=== PATIENT | male | born 1950 | race Caucasian/White ===

== ENCOUNTER → 2020-04-08 14:15 | Outpatient (BNVA) | payer OTHER, SELFPAY | PROVIDERS: Family Provider Family Medicine; PCP Family Medicine; Visit Provider Internal Medicine Critical Care Medicine | DX: Z11.59 Encounter for screening for other viral diseases (principal) | CPT/HCPCS: 87635 ==

== ENCOUNTER 2020-04-13 10:50 | Outpatient (CLI) | payer OTHER, SELFPAY ==
--- NOTE | 2020-04-13 11:37 | PFTS_ITS ---
Date of Study:04/13/20 Date of Dictation: MECHANICS: Forced vital capacity (FVC) is reduced. Forced expiratory volume in one second (FEV1) is reduced. FEV1/FVC is normal. FLOW VOLUME LOOP: Reduced flow at all lung volumes with narrow flow volume loop. LUNG VOLUMES: Total lung capacity (TLC) is . Residual volume (RV) is . DIFFUSING CAPACITY FOR CARBON MONOXIDE: Moderately reduced. INTERPRETATION: Spirometry is consistent with mild restriction. There is no significant postbronchodilator response. The patient has reduced total lung capacity with relatively preserved residual volume. This is likely secondary to a combined obstructive and restrictive process. Gas exchange (DLCO) is moderately reduced. MTDD
[2020-04-13 11:39] VITALS: BP 146/74
== END 2020-04-13 10:51 | disposition home or self-care (01) ==
LOC: RT 10:51
PROVIDERS: Family Provider Family Medicine; PCP Family Medicine; Visit Provider Internal Medicine Critical Care Medicine
DX: J44.9 Chronic obstructive pulmonary disease, unspecified (principal)
CPT/HCPCS: 94060; 94618; 94726; 94729; J7611

== ENCOUNTER 2020-04-13 11:00 | Outpatient (CLI) | payer OTHER, SELFPAY | END 2020-04-13 11:01 | disposition home or self-care (01) | LOC: SLEEP 04-14 15:18 | PROVIDERS: Family Provider Family Medicine; PCP Family Medicine; Visit Provider Internal Medicine Critical Care Medicine | DX: J44.9 Chronic obstructive pulmonary disease, unspecified (principal) | CPT/HCPCS: 94762 ==

== ENCOUNTER 2020-05-07 07:43 | Outpatient (CLI) | payer OTHER, MEDICARE, SELFPAY ==
--- NOTE | 2020-05-07 09:53 | CT_ITS ---
WS: [id number] CTA scan of the chest with IV contrast. Additional two-dimensional coronal and sagittal reconstructio n and MIP images was performed. 05/07/2020 Clinical Data: sOB, HYPOXEMIA ON AMBULATION ELEVATED D-DIMER Comparison: CTA chest, 12/22/2011. DLP: All CT scans at [facility] use at least one of these dose optimization techniques: automat ed exposure control; mA and/or kV adjustment per patient size (includes targeted exams where dose is matched to clinical indication); or iterative reconstruction. Findings: The central pulmonary arteries and peripheral pulmonary arteries fill normally with no evidence of in traluminal filling defects. No pulmonary embolic disease is noted. No nodules, masses or effusions are seen. The heart size is normal with no pericardial effusion. Ther e is coronary artery calcification. No pneumonia or pneumothorax is seen. The pulmonary arterial syst em and thoracic aorta demonstrate no abnormalities or dilatations. There is no axillary or significan t mediastinal adenopathy. The trachea bifurcates into the bronchi. There is a small hiatal hernia. The upper abdomen shows no abnormalities. The visualized liver, spleen, pancreas, gallbladder, adrena l glands and superior poles of the kidneys are not remarkable. The bones of the thoracic and upper lumbar spine show moderate osteoarthritis.. CT/CT angio chest PE protcl [id number] Impression: 1. Negative for pulmonary embolic disease. 2. Negative for acute cardiopulmonary disease.
[2020-05-07 10:13] LABS: Blood Urea Nitrogen 8 mg/dL (8-23); Glomerular Filtration Rate 74.5 mL/min (90-130)
[2020-05-07] MEDS: iohexol 350 mg/mL 100 mL Btl IV (10:24)
== END 2020-05-07 07:44 | disposition home or self-care (01) ==
LOC: RADWPI 07:49
PROVIDERS: PCP Family Medicine; Visit Provider Family Medicine
DX: R06.02 Shortness of breath (principal); R09.02 Hypoxemia; R79.89 Other specified abnormal findings of blood chemistry
CPT/HCPCS: 71275; 82565; 84520; Q9967

== ENCOUNTER 2020-08-02 08:51 | Outpatient (CLI) | payer OTHER, MEDICARE, SELFPAY ==
[2020-08-02 09:13] VITALS: BMI 40.6
--- NOTE | 2020-08-02 09:18 | ECG_ITS ---
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 Interpretive Statements NAME OF STUDY: LEXISCAN SESTAMIBI STRESS TEST INDICATION: [Exertional Shortness of Breath] Procedure: At the baseline, the blood pressure was 127/72mmHg, with a heart rate of 62 bpm. The electrocardiogram showed normal sinus rhythm, normal with normal ST and T waves. The Lexiscan was infused over a duration of 20 seconds. A total of 0.4 mg of Lexiscan was infused. The stress phase was continued for a total of 5 minutes. Heart rate at the end of stress phase was 66 bpm with a blood pressure 131/66mmHg. The EKG at the peak infusion revealed sinus rhythm with no significant ST-T wave changes. Sestamibi was injected 20 seconds after Lexiscan infusion. Blood pressure at the end of the recovery phase was 126/72mmHg with a heart rate of 64 bpm. Conclusion: 1. Normal EKG response to Lexiscan infusion. 2. No Lexiscan induced chest pain or cardiac arrhythmia. 3. Normal blood pressure and heart rate response. 4. Sestamibi/sestamibi perfusion scan pending; see separate report. Electronically Signed On 08-15-2020 17:43:01 CDT by Sunny Orozco M.D. [id number]
--- NOTE | 2020-08-02 09:20 | NMCV_ITS ---
NM jose miguel perf SPECT r/s* [id number] Karel Horan Age: 69 Gender: M : 1950 Exam Date: 08/02/2020 10:46 Ordering Phys: Delphine Garcia MD Technologist: BIRD Paulino Exam Location: [facility] Indications: SOB STRESS TEST Please see separate stress test report in [facility] for full findings IMAGE PROTOCOL Rest/Stress 1 Lexiscan Day Radiopharmaceutical Dose (mCi) Administration Site Administered by Rest: Tc-99m 10.8 IV BIRD Paulino Sestamibi Stress:Tc-99m 32.3 IV BIRD Whittaker Sestamibi Rest: 02-Aug-2020 60 Discovery 630 Stress: 02-Aug-2020 30 Discovery 630 0.4mg Lexiscan. Images obtained in supine and prone position. SPECT RESULTS Technical Quality: Good Raw Data Analysis: Soft tissue attenuation Image Corrections: No attenuation or motion correction applied Summed Stress Score: 2 Summed Rest Score: 4 Summed Difference Score: 1 PERFUSION FINDINGS There is medium sized perfusion defect in the inferior wall which is mostly fixed. Likely demonstrates artifact vs prior infarct with ariadna-infarct ischemia FUNCTIONAL RESULTS (calculated via Gated SPECT) Stress Image LV EF (%): 54 Stress EDV (mL):143 TID: 1.13 Stress ESV (mL):66 FUNCTIONAL FINDINGS: There is normal left ventricular systolic function. IMPRESSIONS 1. There is a medium sized, mostly fixed perfusion defect in the inferior wall. This likely represents attenuation artifact vs prior infarct with ariadna-infarct ischemia. No significant area of ischemia noted 2. LV systolic function is normal Sunny Orozco MD (Electronically Signed) Final Date: 02 August 2020 17:01 S
--- NOTE | 2020-08-02 11:18 | SUR.PREOP ---
Patient reports no pain or discomfort prior to the start of the procedure.
[2020-08-02] MEDS: regadenoson 0.4 Mg/5 ml Syringe IVP (11:20)
[2020-08-02 11:54] VITALS: BP 126/63; PULSE 63
== END 2020-08-02 08:52 | disposition home or self-care (01) ==
PROVIDERS: PCP Family Medicine; Visit Provider Internal Medicine Critical Care Medicine
DX: R06.02 Shortness of breath (principal); I50.30 Unspecified diastolic (congestive) heart failure
CPT/HCPCS: 78452; 93017; A9500; J2785

== ENCOUNTER 2021-03-17 06:24 | Emergency (ER) | payer MEDICARE, OTHER, SELFPAY ==
[2021-03-17 06:35] VITALS: BP 141/79; PULSE 60; RESP 18; TEMP 36.7; O2SAT 90; BMI 39.3
--- NOTE | 2021-03-17 06:38 | XR_ITS ---
WS: [id number] RIGHT FOOT: 3 VIEW(S) TECHNIQUE: AP, oblique and lateral. HISTORY: fall pain; r 1st metatarsal/toe pain COMPARISON: None available. Severe diffuse osteopenia. No fractures are identified. Marked pes planus. Normal tarsal/metatarsal alignment. Small calcaneal spur. Mild soft tissue edema surrounding the metatarsals. XR/XR foot RT min 3V* [id number] IMPRESSION: Soft tissue edema surrounding the metatarsals but no acute fracture identified.
--- NOTE | 2021-03-17 06:39 | W.ED.EXTPRO ---
HPI - Extremity Problem General: Chief complaint: Extremity Injury, Lower Stated complaint: r foot injury: fall Time Seen by Provider: 03/17/21 06:34 Source: patient Mode of arrival: ambulatory Limitations: other (Patient uses a cane normally) History of Present Illness: HPI Narrative: Patient states he tripped last night and hurt his right big toe and proximal right foot. He states he has chronic foot and ankle problems. Complaint: extremity pain and joint pain Onset (ago): day(s) (Last night) Pain Consistency: constant Location: right and toe Severity scale (1-10): 6 Quality: aching and sharp Radiation: none Relieving factors: nothing Exacerbating factors: walking Associated symptoms: Reports arthralgias; Deny chest pain, fever(s), myalgias, rash or short of breath Review of Systems Const: Denies: fever(s) Eyes: Denies: change in vision ENMT: Denies: throat pain Card: Denies: chest pain Resp: Denies: dyspnea or wheezing GI: Denies: abdominal pain, nausea or vomiting : Denies: flank pain Musc: Denies: neck pain or back pain Skin/Breast: Denies: rash Neuro: Denies: headache(s) or numbness in extremities Kan/Lymph: Denies: enlarged lymph nodes PFSH ED PFSH: Medical History Cardiomegaly Chronic back pain COPD (chronic obstructive pulmonary disease) Crohn's disease GERD (gastroesophageal reflux disease) Histoplasmosis HTN (hypertension) Hyperlipidemia Hypoxia Lung nodule Efe syndrome Nicotine dependence Surgical History H/O hernia repair H/O shoulder surgery History of ear surgery Social History Smoking and tobacco status: current every day smoker cigarettes Packs smoked per day: 1 Years cigarettes smoked: 45 Quit status (tobacco): considering quitting Second hand smoke exposure: Yes Smoking risk assessment/counseling performed?: Yes Alcohol intake: never Lives independently: Yes Household members: spouse Marital status: service: Yes Current occupational status: retired Pets and animals: Yes History of recent travel: No Current gender identity: Male Physical Exam Const: COMMON NORMALS: no acute distress, patient oriented x3, healthy appearing and alert EXAM LIMITATIONS: no altered mental status GENERAL APPEARANCE: cooperative and comfortable NUTRITIONAL APPEARANCE: obese HENMT: COMMON NORMALS: normocephalic and atraumatic HEAD & SCALP: normocephalic and atraumatic Neck/C-Spine: COMMON NORMALS: supple Chest: COMMONS NORMALS: normal inspection of the chest Resp: COMMON NORMALS: normal respiratory effort Cardio: PERIPHERAL PULSES: posterior tibial pulses present and dorsalis pedis present Extremity: COMMON NORMALS: full ROM and capillary refill normal NARRATIVE EXTREMITY EXAM: Mild peripheral edema bilaterally. Patient states this is chronic. Patient has moderate pain to the first MTP joint of the right foot no lacerations abrasions or puncture wounds. No cellulitis. Right toe is tender but no obvious deformity. RIGHT LOWER EXTREMITY: Yes foot & digits (No tendon or neurovascular deficits.) Right foot and digits: Yes ROM, Yes neurovascular exam and Yes tendon exam Neuro: COMMON NORMALS: patient oriented x3 SENSORIUM/ORIENTATION: Yes alert SPEECH: speech normal SENSORY EXAM: Yes extremities MOTOR EXAM: 5/5 motor strength present throughout Psych: COMMON NORMALS: mental status grossly normal, Normal thought process present, cooperative, normal affect and speech normal SPEECH: Yes normal speech THOUGHT PROCESS: Normal thought process present Skin: COMMON NORMALS: no rashes or lesions noted, no wounds and no jaundice GENERAL SKIN EXAM: no rashes or lesions noted Course Vital Signs: Vital signs: Vital Signs Temperature 98.1 F 03/17/21 06:35 Pulse Rate 60 03/17/21 06:35 Respiratory Rate 18 03/17/21 06:35 Blood Pressure 141/79 03/17/21 06:35 Pulse Oximetry 90 03/17/21 06:35 MDM - Extremity (Nontraumatic) MDM Narrative: Medical decision making narrative: See nursing assessment. I accidentally ordered left foot x-ray. This should be canceled. Imaging Data^: Xray Ortho: My impression: Nondisplaced distal oblique fracture of the proximal phalange of the right 1st toe is nondisplaced but is intra-articular. Discharge Plan Discharge Condition: Stable Prescriptions: No Action lidocaine 5 % adhesive patch,medicated 1 patch TOPICAL DAILY RF: 0 mesalamine 500 mg capsule, extended release 3,600 mg PO ONCE RF: 0 metoprolol succinate 50 mg capsule,sprinkle,ER 24hr 25 mg PO BID RF: 0 morphine 60 mg capsule, ER multiphase 24 hr 60 mg PO Q8H PRNRF: 0 ropinirole 2 mg tablet 2 mg PO DAILY RF: 0 gabapentin 600 mg tablet 1,200 mg PO TID RF: 0 lisinopril 40 mg tablet 20 mg PO DAILY RF: 0 omeprazole 40 mg capsule,delayed release(DR/EC) 40 mg PO DAILY RF: 0 trazodone 100 mg tablet 100 mg PO DAILY RF: 0 Stiolto Respimat 2.5-2.5 mcg/actuation mist 2 puff INHALATION Q24H 30 Days Qty: 4 RF: 3 levalbuterol tartrate [Xopenex HFA] 45 mcg/actuation HFA aerosol inhaler 2 inh inhalation Q6H PRN (Reason: shortness of breath or wheezing) RF: 0 furosemide [Lasix] 20 mg tablet 20 mg PO DAILY 30 Days Qty: 30 RF: 3 nicotine 21 mg/24 hr patch 24 hour 1 patch transdermal DAILY RF: 0 cetirizine [All Day Allergy (cetirizine)] 10 mg tablet 10 mg PO DAILY PRNRF: 0 diphenhydramine HCl [Allergy (diphenhydramine)] 25 mg capsule 25 mg PO DAILY PRNRF: 0 Discharge Orders: Discharge ED (Routine); Ordered 03/17/21 Ordered By: Henry Peralta Referrals: Caesar Leonard DO [Physician] - (Follow up for foot injury) Laureano Abraham MD [Primary Care Provider] - Discharge Diet: Advance as tolerated Discharge Activity: Increase activity as tolerated Patient Instructions: Fractures - Phalanx (Toe) Activity Restrictions/Additional Instructions: Use walking boot as needed. You appear to have a nondisplaced fracture of the proximal phalanx of the right first toe. Follow-up with orthopedist this week or next week for evaluation. Continue home pain medications as needed Coding Level of Care Code ED Regional Engagement Consultant for Chg Fwd Exam Comprehensive
--- NOTE | 2021-03-17 07:30 | PC.PT ---
received verbal order from ER for walking boot for this patient ,and they stated they will send order.this was provided to them.
== END 2021-03-17 08:05 | disposition home or self-care (01) ==
PROVIDERS: Emergency Provider Family Medicine; PCP Family Medicine
DX: S92.414A Nondisplaced fracture of proximal phalanx of right great toe, initial encounter for closed fracture (principal); J44.9 Chronic obstructive pulmonary disease, unspecified; I10 Essential (primary) hypertension; E78.5 Hyperlipidemia, unspecified; F17.210 Nicotine dependence, cigarettes, uncomplicated; W18.40XA Slipping, tripping and stumbling without falling, unspecified, initial encounter
CPT/HCPCS: 73630; 99282; L4361

== ENCOUNTER 2022-04-04 07:22 | Outpatient (CLI) | payer OTHER, SELFPAY ==
--- NOTE | 2022-04-04 | USCV_ITS ---
Karel Horan Age: 71 Gender: M : 1950 Exam Date: 04/04/2022 07:56 Ordering Phys: Sade Vieira MD Technologist: CT Exam Location: [facility] [place] Indication: screening HISTORY: Diameter (cm) AP x Transverse x Length Velocity (cm/s) Waveform Prox Aorta: 2.32 x 2.50 x 66.10 Triphasic Mid Aorta: 2.22 x 2.45 x 74.50 Triphasic Distal Aorta: 2.41 x 2.56 x 87.60 Triphasic Right Iliac Prox: 1.11 x 1.49 x 87.60 Triphasic Left Iliac Prox: 1.11 x 1.49 x 110.00 Triphasic Stent Prox Landing x x Aneurysmal Sac Max x x Lt Lat Sac Dim Rt Lat Sac Dim Stent Dist Landing x x Right Iliac Stent x x Left Iliac Stent x x Right Renal Art Left Renal Art FINDINGS: no evidence of aaa CONCLUSIONS No evidence of abdominal aortic or bilateral iliac aneurysm. Burak He MD (Electronically Signed) Final Date: 04 April 2022 16:32 S
== END 2022-04-04 07:23 | disposition home or self-care (01) ==
LOC: RAD 07:22
PROVIDERS: PCP Family Medicine; Visit Provider Family Medicine
DX: Z13.89 Encounter for screening for other disorder (principal)
CPT/HCPCS: 76706

== ENCOUNTER 2022-05-01 05:48 | Emergency (ER) | payer MEDICARE, OTHER, SELFPAY ==
[2022-05-01] VITALS (9 sets, daily range): BP systolic 122–181; BP diastolic 73–107; PULSE 82–86; RESP 16–20; TEMP 36.7; O2SAT 85–92; BMI 36.9
--- NOTE | 2022-05-01 05:58 | CTR_ITS ---
PROCEDURE INFORMATION: Exam: CT Abdomen And Pelvis Without Contrast Exam date and time: 05/01/2022 6:15 AM Age: 71 years old Clinical indication: Abdominal pain; Flank; Right; Prior surgery; Surgery date: 6+ months; Surgery type: Umb hernia repair x 2 w mesh; Additional info: Flank pain TECHNIQUE: Imaging protocol: Computed tomography of the abdomen and pelvis without contrast. Radiation optimization: All CT scans at this facility use at least one of these dose optimization techniques: automated exposure control; mA and/or kV adjustment per patient size (includes targeted exams where dose is matched to clinical indication); or iterative reconstruction. COMPARISON: CT abdomen w con* [id number] 01/29/2018 1:54 PM RADIATION DOSE METRICS: Total DLP (mGy-cm): 1325.95 FINDINGS: Liver: Tiny benign calcified granulomas are present in the liver. Gallbladder and bile ducts: Normal. No calcified stones. No ductal dilation. Pancreas: Normal. No ductal dilation. Spleen: Tiny benign calcified granulomas are present in the spleen. Adrenal glands: Normal. No mass. Kidneys and ureters: There is a stable 2.2 cm hyperdense cyst in the upper pole of the right kidney which is probably benign proteinaceous cyst. There is no hydronephrosis or renal calculus. Stomach and bowel: Mild diverticulosis. No evidence of diverticulitis. No bowel obstruction or dilatation. Appendix: No evidence of appendicitis. Intraperitoneal space: Unremarkable. No free air. No significant fluid collection. Vasculature: The abdominal aorta and iliac arteries are calcified. No abdominal aortic aneurysm. Lymph nodes: There are small benign calcified retroperitoneal lymph nodes. Urinary bladder: Unremarkable as visualized. Reproductive: Unremarkable as visualized. Bones/joints: Chronic degenerative changes are present in the spine with disc space narrowing sclerosis and osteophytes. No acute bony abnormality. Soft tissues: Bilateral small fat containing inguinal hernias. Status post umbilical hernia repair. CT/CT kidney stone [id number] IMPRESSION: No acute abnormality.
[2022-05-01 06:05] LABS: Basophils % 0.1 %; Eosinophils % 0.3 %; Hematocrit 45.5 % (42.0-52.0); Hemoglobin 15.2 g/dL (11.7-16.6); Lymphocytes # 1.2 10^3/uL (0.8-4.8); Lymphocytes % 12.7 %; Mean Corpuscular HGB Conc 33.4 g/dL (30.0-36.0); Mean Corpuscular Volume 89.7 fl (80-94); Mean Platelet Volume 9.3 fL (7.4-10.4); Monocytes # 0.7 10^3/uL (0.2-0.9); Monocytes % 7.3 %; Neutrophils # 7.21 10^3/uL (1.8-7.7); Neutrophils % 79.3 %; Nucleated Red Blood Cells % 0 %; Platelet Count 181 10^3/cmm (130-400); Red Blood Count 5.07 10^6/uL (4.1-5.3); Red Cell Distribution Width 13.9 % (12.1-15.1); White Blood Count 9.1 10^3/uL (4.0-10.0)
--- NOTE | 2022-05-01 06:05 | ECG_ITS ---
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 Measurements Intervals [place] Rate: 76 P: 58 [place]: 246 QRS: -65 QRSD: 118 T: 31 QT: 395 QTc: 445 Interpretive Statements SINUS RHYTHM WITH FIRST DEGREE AV BLOCK WITH FREQUENT SUPRAVENTRICULAR PREMATURE COMPLEXES LEFT ANTERIOR FASCICULAR BLOCK [QRS AXIS <= -45, QR IN I, RS IN II] POSSIBLE ANTERIOR MYOCARDIAL INFARCTION , PROBABLY OLD [30 ms Q WAVE IN V3/V4, OR R < 0.2 mV IN V4] Compared to ECG 09/14/2015 16:43:52 No significant changes Electronically Signed On 05-01-2022 14:22:14 [employer] by Pina Hernandez M.D. [id number]
[2022-05-01] MEDS: morphine 4 mg/mL SDV 1 mL IVP (06:10)
[2022-05-01] MEDS: ondansetron 2 mg/ML SDV 2 mL 4 MG IVP (06:10)
--- NOTE | 2022-05-01 06:23 | W.ED.ABDPA2 ---
HPI - Abdominal Pain General: Chief Complaint: Abdominal Pain Stated Complaint: Possible Kidney Stone Time Seen by Provider: 05/01/22 05:52 Source: patient Mode of arrival: ambulatory History of Present Illness: 71-year-old male presents emergency room with complaining of right flank pain that began overnight. He has had kidney stones in the past feels like he has a kidney stone on the right side. Has not really associate anything that makes it better or worse she is not noticing worsening the pain with urination he denies dysuria urgency or frequency or hematuria. No fever. Patient previously has had an appendectomy and 2 umbilical wall hernia surgeries 1 placing mesh. No abdominal or chest pain or shortness of breath at this time. MD elicited complaint: abdominal pain Pertinent past history: kidney stones Onset (ago): hour(s) Pain Consistency: constant Location: R flank Severity: moderate Quality: sharp Radiation: other (Right groin) Exacerbating factors: nothing Relieving factors: nothing Associated Symptoms: Reports nausea; Denies anorexia, belching, bloating, change in bowel habits, change in stool character, chills, coffee ground emesis, constipation, GI cramping, diarrhea, dyspepsia, dysuria, excessive flatus, fever(s), heartburn, hematochezia, hematuria, hematemesis, fecal incontinence, loose stools, melena, poor appetite, syncope and vomiting Review of Systems Const: Denies: fever(s) or chills ENMT: Denies: throat pain, ear or mastoid pain, nasal discharge or nasal congestion Card: Denies: syncope Resp: Denies: dyspnea, productive cough or non-productive cough GI: Reports: nausea; Denies: vomiting, hematemesis, coffee ground emesis, heartburn, diarrhea, constipation, bloating, GI cramping, belching, excessive flatus, fecal incontinence, change in bowel habits, change in stool character, hematochezia or melena : Denies: dysuria or hematuria Skin/Breast: Denies: rash or pruritus PFSH ED PFSH: Medical History Cardiomegaly Chronic back pain COPD (chronic obstructive pulmonary disease) Crohn's disease GERD (gastroesophageal reflux disease) Histoplasmosis HTN (hypertension) Hyperlipidemia Hypoxia Lung nodule Efe syndrome Nicotine dependence Surgical History H/O hernia repair H/O shoulder surgery History of ear surgery Social History Smoking and tobacco status: current every day smoker cigarettes Packs smoked per day: 1 Years cigarettes smoked: 45 Quit status (tobacco): considering quitting Second hand smoke exposure: Yes Smoking risk assessment/counseling performed?: Yes Alcohol intake: never Lives independently: Yes Household members: spouse Marital status: service: Yes Current occupational status: retired Pets and animals: Yes History of recent travel: No Current gender identity: Male Physical Exam Const: COMMON NORMALS: no acute distress GENERAL APPEARANCE: cooperative and comfortable ORIENTATION/CONSCIOUSNESS: Yes awake, Yes oriented to person, Yes oriented to place and Yes oriented to time HENMT: COMMON NORMALS: normocephalic, atraumatic and hearing grossly normal bilaterally HEAD & SCALP: normocephalic and atraumatic Resp: COMMON NORMALS: normal respiratory effort, No retractions, No use of accessory muscles and clear to auscultation bilaterally AUSCULTATION: clear to auscultation bilaterally Cardio: COMMON NORMALS: regular rate, regular rhythm and No murmurs present (Cardio) RATE: regular rate RHYTHM: regular rhythm GI: COMMON NORMALS: Soft to palpation and No hepatosplenomegaly present AUSCULTATION: Yes normoactive bowel sounds PALPATION: Yes Soft to palpation, No Tenderness to palpation present (GI), No Guarding due to palpation present (GI) and Yes No hepatosplenomegaly present : COMMON NORMALS: Yes no CVA tenderness BLADDER/KIDNEY EXAM: Yes no CVA tenderness Back/Pelvis: COMMON NORMALS: no CVA tenderness Extremity: COMMON NORMALS: normal to inspection, capillary refill normal, no clubbing, cyanosis or edema, no calf tenderness and no pedal edema Neuro: SENSORIUM/ORIENTATION: Yes oriented to person, Yes oriented to place and Yes oriented to time Skin: COMMON NORMALS: no rashes or lesions noted GENERAL SKIN EXAM: no rashes or lesions noted Course Vital Signs: Vital signs: Vital Signs Temperature 98.1 F 05/01/22 05:51 Pulse Rate 86 05/01/22 09:25 Respiratory Rate 16 05/01/22 09:22 Blood Pressure 181/107 05/01/22 05:51 Pulse Oximetry 87 L 05/01/22 09:25 Oxygen Delivery Me thod 05/01/22 09:22 Oxygen Flow Rate 2 05/01/22 09:22 MDM - Abdominal Pain Medical Decision Making CT of his abdomen is unremarkable there is no sign of a kidney stones no blood in his urine. His oxygen sats were in the upper 80s however he was breathing without any complaints no shortness of breath we did a home O2 eval he does require 3 L/min he is normally on oxygen at home but he only has been wearing it at night he was previously on his CPAP as well evidently but that did not really help very much so it stopped given nebulizer treatment here he really did not notice any improvement. Put him on 3 L he still hovers around 90% but does not complain of any breathing discomfort. The CT did not show anything in the lower portions of the lung that were visualized the chest x-ray showed questionable atelectasis. We will discharge him home with a doxylamine for the abdominal cramping its fair amount of air in the colon noted on the CT we will also put him on Levaquin daily to cover for the possibility of infectious process on the diaphragm causing this. Steroid taper he should use the oxygen continuously and aggressive use of his nebulizers recheck with his primary care doctor the next 2 to 3 days return to the ER if he has worsening. Medical Records I reviewed the patient's medical records. Lab Data I reviewed the patient's lab results. 05/01/22 06:00 05/01/22 06:00 Labs/Radiology: Radiology Impressions Abdomen/Pelvis CT 05/01/22 05:58 IMPRESSION: No acute abnormality. Chest X-Ray 05/01/22 08:35 IMPRESSION: Small area of linear atelectasis in the left lung base. Otherwise, no interval change compared to 09/14/2015. No acute abnormality identified. Laboratory Results WBC 9.1 10^3/uL (4.0-10.0) 05/01/22 06:00 RBC 5.07 10^6/uL (4.1-5.3) 05/01/22 06:00 Hgb 15.2 g/dL (11.7-16.6) 05/01/22 06:00 Hct 45.5 % (42.0-52.0) 05/01/22 06:00 MCV 89.7 fl (80-94) 05/01/22 06:00 MCH 30.0 pg (28.0-34.0) 05/01/22 06:00 MCHC 33.4 g/dL (30.0-36.0) 05/01/22 06:00 RDW 13.9 % (12.1-15.1) 05/01/22 06:00 Plt Count 181 10^3/cmm (130-400) 05/01/22 06:00 MPV 9.3 fL (7.4-10.4) 05/01/22 06:00 Neut % (Auto) 79.3 % 05/01/22 06:00 Lymph % (Auto) 12.7 % 05/01/22 06:00 [place] % (Auto) 7.3 % 05/01/22 06:00 Eos % (Auto) 0.3 % 05/01/22 06:00 Baso % (Auto) 0.1 % 05/01/22 06:00 Neut # (Auto) 7.21 10^3/uL (1.8-7.7) 05/01/22 06:00 Lymph # (Auto) 1.2 10^3/uL (0.8-4.8) 05/01/22 06:00 [place] # (Auto) 0.7 10^3/uL (0.2-0.9) 05/01/22 06:00 Eos # (Auto) 0.0 10^3/uL (0.0-0.8) 05/01/22 06:00 Baso # (Auto) 0.0 10^3/uL (0.0-0.1) 05/01/22 06:00 Nucleated RBC % (auto) 0 % 05/01/22 06:00 Nucleated RBCs # 0.0 /100WBC 05/01/22 06:00 Sodium 134 mmol/L (136-145) L 05/01/22 06:00 Potassium 4.5 mmol/L (3.5-5.1) 05/01/22 06:00 Chloride 96 mmol/L (98-107) L 05/01/22 06:00 Carbon Dioxide 26 mmol/L (22-29) 05/01/22 06:00 Anion Gap 16.5 (5-19) 05/01/22 06:00 BUN 14 mg/dL (8-23) 05/01/22 06:00 Creatinine 1.1 mg/dL (0.7-1.2) 05/01/22 06:00 GFR Calculation 66.4 mL/min (90-130) L 05/01/22 06:00 Glucose 142 mg/dL (65-115) H 05/01/22 06:00 Calculated Osmolality 281 mOsm/kg (285-295) L 05/01/22 06:00 Calcium 9.3 mg/dL (8.5-10.5) 05/01/22 06:00 Total Bilirubin 0.4 mg/dL (0.15-1.2) 05/01/22 06:00 AST 22 U/L (0-40) 05/01/22 06:00 ALT 21 U/L (0-41) 05/01/22 06:00 Alkaline Phosphatase 66 U/L (40-130) 05/01/22 06:00 Total Protein 7.0 g/dL (6.6-8.7) 05/01/22 06:00 Albumin 3.8 g/dL (3.5-5.2) 05/01/22 06:00 Globulin 3.2 g/dL (1.3-4.6) 05/01/22 06:00 Urine Color Yellow (Yellow) 05/01/22 07:11 Urine Appearance Clear (CLEAR) 05/01/22 07:11 Urine pH 6.5 (5-7) 05/01/22 07:11 Ur Specific [place] 1.010 (1.005-1.030) 05/01/22 07:11 Urine Protein Neg (Negative) 05/01/22 07:11 Urine Glucose (UA) Norm (Normal) 05/01/22 07:11 Urine Ketones 1+ (Negative) H 05/01/22 07:11 Urine Blood Neg (Negative) 05/01/22 07:11 Urine Nitrate Negative (Negative) 05/01/22 07:11 Urine Bilirubin Neg (Negative) 05/01/22 07:11 Urine Urobilinogen Norm mg/dL (Negative) 05/01/22 07:11 Ur Leukocyte Esterase Negative (Negative) 05/01/22 07:11 Discharge Plan Discharge Patient Disposition: Home Clinical Impression: Abdominal pain, Acute exacerbation of chronic obstructive pulmonary disease Condition: Stable Prescriptions: New dicyclomine 20 mg tablet 20 mg PO QID PRN (Reason: abd cramping) Qty: 30 0RF prednisone 20 mg tablet 20 mg PO TID Qty: 15 0RF Rx Instructions: 1 p.o. 3 times daily x3 days, 1 p.o. twice daily x2 days, 1 p.o. daily x2 days levofloxacin 750 mg tablet 750 mg PO DAILY 7 Days Qty: 7 0RF No Action lidocaine 5 % adhesive patch,medicated 1 patch TOPICAL DAILY Rx Instructions: leave on most painful area for up to 12 hrs mesalamine 500 mg capsule, extended release 3,600 mg PO ONCE metoprolol succinate 50 mg capsule,sprinkle,ER 24hr 25 mg PO BID morphine 60 mg capsule, ER multiphase 24 hr 60 mg PO Q8H PRN ropinirole 2 mg tablet 2 mg PO DAILY gabapentin 600 mg tablet 1,200 mg PO TID lisinopril 40 mg tablet 20 mg PO DAILY omeprazole 40 mg capsule,delayed release(DR/EC) 40 mg PO DAILY Stiolto Respimat 2.5-2.5 mcg/actuation mist 2 puff INHALATION Q24H 30 Days Qty: 4 3RF levalbuterol tartrate [Xopenex HFA] 45 mcg/actuation HFA aerosol inhaler 2 inh inhalation Q6H PRN (Reason: shortness of breath or wheezing) furosemide [Lasix] 20 mg tablet 20 mg PO DAILY 30 Days Qty: 30 3RF nicotine 21 mg/24 hr patch 24 hour 1 patch transdermal DAILY cetirizine [All Day Allergy (cetirizine)] 10 mg tablet 10 mg PO DAILY PRN diphenhydramine HCl [Allergy (diphenhydramine)] 25 mg capsule 25 mg PO DAILY PRN trazodone 100 mg tablet 100 mg PO DAILY Qty: 30 11RF Discharge Orders: Discharge ED (Routine); Ordered 05/01/22 Ordered By: Keith Menjivar Referrals: Laureano Abraham MD [Primary Care Provider] - Discharge Diet: Clear Liquid Discharge Activity: Increase activity as tolerated Patient Instructions: Abdominal Pain (ED), Opioid Safety, Pain Management Activity Restrictions/Additional Instructions: You are seen today for right flank pain. Your liver functions were normal CT of your abdomen was normal there is no sign of infection or blood or renal stone in either the urine or the CT. Suspect some of this may be related to bowel cramping. Dicyclomine may be helpful. If you develop diarrhea or bloody stools recheck with your primary care doctor or in the emergency room. Recommend clear liquid diet for the next 24 hours and advance as tolerated. On chest x-ray there is a questionable area of atelectasis at the base of the right lung. There is no correlating findings on the lower portions lung that the CT head visualized. You should use your oxygen continuously throughout the day and night. We will start you on Levaquin 750 once daily steroid taper and use your nebulizer regularly throughout the day if you have worsening symptoms recheck. Coding Level of Care Code ED Orthotics Prosthetics Technician for Royer Vance Exam Comprehensive
[2022-05-01 06:27] LABS: Alanine Aminotransferase 21 U/L (0-41); Albumin Level 3.8 g/dL (3.5-5.2); Alkaline Phosphatase 66 U/L (40-130); Anion Gap 16.5 (5-19); Aspartate Amino Transferase 22 U/L (0-40); Blood Urea Nitrogen 14 mg/dL (8-23); Calcium 9.3 mg/dL (8.5-10.5); Carbon Dioxide 26 mmol/L (22-29); Chloride 96 mmol/L (98-107); Globulin 3.2 g/dL (1.3-4.6); Glomerular Filtration Rate 66.4 mL/min (90-130); Glucose 142 mg/dL (65-115); Osmolality Calculated 281 mOsm/kg (285-295); Potassium 4.5 mmol/L (3.5-5.1); Sodium 134 mmol/L (136-145); Total Bilirubin 0.4 mg/dL (0.15-1.2)
[2022-05-01 07:23] LABS: Add Urine Microscopic? NO; Charge for UA Resulting for Rev
[2022-05-01 07:30] LABS: Bilirubin Urine Neg (Negative); Blood Urine Neg (Negative); Glucose Urine UA Norm (Normal); Ketones Urine 1+ (Negative); Leukocyte Esterase Urine Negative (Negative); Nitrate Urine Negative (Negative); Protein Urine Neg (Negative); Urine Appearance Clear (CLEAR); Urine Color Yellow (Yellow); Urobilinogen Urine Norm (Negative); pH Urine 6.5 (5-7)
--- NOTE | 2022-05-01 08:35 | XR_ITS ---
WS: [id number] XR chest 1V portable [id number] REASON FOR EXAM: dyspnea FINDINGS: Mild tortuosity and ectasia of the thoracic aorta. Mild cardiac enlargement. Calcified granulomatous disease in both hemithoraces. Prominence of the interstitium in the lower lung valenzuela unchanged compared to 09/14/2015. Small linea r area of atelectasis in the left lung base. Previous labral repair surgery right shoulder. XR/XR chest 1V portable [id number] IMPRESSION: Small area of linear atelectasis in the left lung base. Otherwise, no interval change compared to 09/14/2015. No acute abnormality identified.
[2022-05-01] MEDS: ipratropium-albuterol 3 mL Neb INHALATION (09:21)
== END 2022-05-01 10:26 | disposition home or self-care (01) ==
PROVIDERS: Emergency Provider Family Medicine; PCP Family Medicine
DX: R10.9 Unspecified abdominal pain (principal); J44.1 Chronic obstructive pulmonary disease with (acute) exacerbation
CPT/HCPCS: 71045; 74176; 80053; 81003; 85025; 93005; 94640; 96374; 96375; 99285; J2270; J2405; J2930

== ENCOUNTER → 2022-05-30 10:01 | Outpatient (BNVA) | payer MEDICARE, OTHER, SELFPAY | PROVIDERS: PCP Family Medicine; Visit Provider Student in an Organized Health Care Education/Training Program | DX: M25.562 Pain in left knee (principal); M77.8 Other enthesopathies, not elsewhere classified | CPT/HCPCS: 73560; 73565; 99204 ==

== ENCOUNTER → 2022-06-27 12:38 | Outpatient (BNVA) | payer OTHER, SELFPAY | PROVIDERS: PCP Family Medicine; Visit Provider Thoracic Surgery (Cardiothoracic Vascular Surgery) | DX: I71.21 Aneurysm of the ascending aorta, without rupture (principal) | CPT/HCPCS: 99203 ==

== ENCOUNTER 2022-07-21 09:09 | Outpatient (CLI) | payer OTHER, SELFPAY ==
--- NOTE | 2022-07-21 10:00 | CT_ITS ---
WS: [id number] CTA THORACIC TECHNIQUE: Contrast enhanced CTA of the thoracic aorta with coronal and sagittal reformatted images a nd maximum intensity projection (MIP) images. CLINICAL INFORMATION: aortic root aneurysm COMPARISON: CTA May 07, 2020 DLP: 1309.[address] scans at [facility] use at least one of these dose optimization techniques: automated e xposure control; mA and/or kV adjustment per patient size (includes targeted exams where dose is matc hed to clinical indication); or iterative reconstruction. FINDINGS: Ascending thoracic aorta measures 4.0 cm unchanged from previous. Normal caliber descending thoracic aorta. Aortic root at the sinuses Valsalva measures approximately 3.9 CM. Proximal main pulmonary art eries are normal. No mediastinal or hilar lymphadenopathy. No axillary lymphadenopathy. Cardiomegaly. Adrenal glands are normal. Small esophageal hiatal hernia. Mild chronic emphysematous changes. No acu te pulmonary infiltrates. No focal pneumonia or pleural fluid. A few calcified granulomas. Mild thora cic kyphosis. Mild thoracic curve. CT/CT angio chest [id number] IMPRESSION: 1. Ascending thoracic aorta measures 4.0 cm in maximum dimension not significa ntly changed compared May 07, 2020. 2. Aortic root at the sinuses Valsalva measures approximately 3.9 CM. 3. Cardiomegaly. 4. Vascular calcification including coronary. 5. Lungs are well aerated. No acute pulmonary infiltrates. No suspicious pulmo nary parenchymal abnormalities.
[2022-07-21 10:17] LABS: Blood Urea Nitrogen 14 mg/dL (8-23)
[2022-07-21] MEDS: iohexol 350 mg/mL 500 mL Btl (per mL) IV (10:18)
== END 2022-07-21 09:10 | disposition home or self-care (01) ==
LOC: RAD 09:12
PROVIDERS: PCP Family Medicine; Visit Provider Thoracic Surgery (Cardiothoracic Vascular Surgery)
DX: I71.21 Aneurysm of the ascending aorta, without rupture (principal); I51.7 Cardiomegaly
CPT/HCPCS: 71275; 82565; 84520; Q9967

== ENCOUNTER → 2022-08-07 10:17 | Outpatient (BNVA) | payer MEDICARE, OTHER, SELFPAY | PROVIDERS: PCP Family Medicine; Visit Provider Student in an Organized Health Care Education/Training Program | DX: M22.41 Chondromalacia patellae, right knee (principal); M22.42 Chondromalacia patellae, left knee | CPT/HCPCS: 99213 ==

== ENCOUNTER → 2022-08-14 15:19 | Outpatient (BNVA) | payer MEDICARE, OTHER, SELFPAY | PROVIDERS: PCP Family Medicine; Visit Provider Student in an Organized Health Care Education/Training Program | DX: M17.0 Bilateral primary osteoarthritis of knee (principal) | CPT/HCPCS: 20610; 99213; 99214; J7326 ==

== ENCOUNTER → 2022-10-19 09:06 | Outpatient (BNVA) | payer MEDICARE, OTHER, SELFPAY | PROVIDERS: PCP Family Medicine; Visit Provider Student in an Organized Health Care Education/Training Program | DX: M22.41 Chondromalacia patellae, right knee (principal); M22.42 Chondromalacia patellae, left knee; S83.8X2A Sprain of other specified parts of left knee, initial encounter; X58.XXXA Exposure to other specified factors, initial encounter | CPT/HCPCS: 20610; 99214; J3301 ==

== ENCOUNTER 2023-01-03 10:59 | Outpatient (CLI) | payer MEDICARE, OTHER, SELFPAY ==
--- NOTE | 2023-01-03 11:00 | MR_ITS ---
WS: [id number] MRI LEFT KNEE NONCONTRAST TECHNIQUE: Axial PD, coronal PD fat sat, coronal PD, sagittal PD, and sagittal PD fat-sat images obta ined. CLINICAL INFORMATION: S83.8X2A - Sprain of other specified parts of left knee, ... COMPARISON: None. FINDINGS: Small suprapatellar effusion. ACL and PCL appear intact. Partial high-grade tear involving the distal quadriceps tendon in the patella insertion. Associated fluid signal abnormality. Some normal fibers visualized anteriorly. Laxity of the distal quadriceps tendon. Recommend clinical correlation with in jury. Small amount of prepatellar soft tissue edema. Patellar tendon appears intact. Advanced chondromalacia patella. Normal medial collateral ligament. Normal lateral collateral ligamen t. Normal bone marrow signal. No acute fractures. Medial and lateral meniscus appear intact. Mild chr onic thinning of the medial and lateral meniscus. Moderate tricompartmental arthritis. Soft tissue ed lu about the knee. MR/MR knee LT wo con* [id number] IMPRESSION: 1. Laxity of the distal quadriceps tendon with increased T2 signal suspicious for partial high-grade tear in the distal quadriceps tendon. Recommend correlat ion with area of injury. 2. Patella tendon appears intact. 3. Small suprapatellar effusion with prepatellar soft tissue edema. 4. ACL and PCL appear intact. 5. Normal medial and lateral meniscus. 6. Medial and lateral collateral ligaments appear intact. 7. Advanced chondromalacia patella with hypertrophic patella. 8. Outbridge grading:
== END 2023-01-03 11:00 | disposition home or self-care (01) ==
PROVIDERS: PCP Family Medicine; Visit Provider Student in an Organized Health Care Education/Training Program
DX: S83.8X2A Sprain of other specified parts of left knee, initial encounter (principal); X58.XXXA Exposure to other specified factors, initial encounter; M22.42 Chondromalacia patellae, left knee; M22.41 Chondromalacia patellae, right knee; M25.462 Effusion, left knee; R60.0 Localized edema; R93.6 Abnormal findings on diagnostic imaging of limbs
CPT/HCPCS: 73721

== ENCOUNTER → 2023-01-10 14:30 | Outpatient (BNVA) | payer OTHER, SELFPAY | PROVIDERS: PCP Family Medicine; Referring Provider Family Medicine; Visit Provider Internal Medicine Pulmonary Disease | DX: J98.4 Other disorders of lung (principal); J43.9 Emphysema, unspecified; G47.33 Obstructive sleep apnea (adult) (pediatric); G47.34 Idiopathic sleep related nonobstructive alveolar hypoventilation; I50.30 Unspecified diastolic (congestive) heart failure; F17.210 Nicotine dependence, cigarettes, uncomplicated; E66.9 Obesity, unspecified; Z68.39 Body mass index [BMI] 39.0-39.9, adult; Z99.81 Dependence on supplemental oxygen | CPT/HCPCS: 99214 ==

== ENCOUNTER → 2023-01-16 11:17 | Outpatient (BNVA) | payer MEDICARE, OTHER, SELFPAY | PROVIDERS: PCP Family Medicine; Visit Provider Student in an Organized Health Care Education/Training Program | DX: Z01.818 Encounter for other preprocedural examination (principal); Z79.899 Other long term (current) drug therapy; S76.102A Unspecified injury of left quadriceps muscle, fascia and tendon, initial encounter; X58.XXXA Exposure to other specified factors, initial encounter | CPT/HCPCS: 36415; 80053; 81003; 85025; 99214 ==

== ENCOUNTER → 2023-01-24 10:29 | Outpatient (BNVA) | payer MEDICARE, OTHER, SELFPAY | PROVIDERS: PCP Family Medicine; Visit Provider Family Medicine | DX: Z01.818 Encounter for other preprocedural examination (principal) | CPT/HCPCS: 80048 ==

== ENCOUNTER 2023-01-31 09:03 | Day surgery (SDC) | payer MEDICARE, OTHER, SELFPAY ==
[2023-01-30 09:01] VITALS: BMI 38.2
[2023-01-31] VITALS (12 sets, daily range): BP systolic 128–172; BP diastolic 67–84; PULSE 53–59; RESP 11–20; TEMP 36.1–36.4; O2SAT 91–99
[2023-01-31] MEDS: sodium chloride 0.9% 1,000 ML 30 ML IV (09:37)
[2023-01-31] MEDS: ketorolac 30 mg/mL INJ IVP (09:38)
[2023-01-31] MEDS: acetaminophen 1,000 MG/100 ML PIGGYBACK 400 MG IV (09:42)
--- NOTE | 2023-01-31 09:42 | P.ANESASSM_ITS ---
Pre-Anesthetic Assessment Height/Weight: Height 1.85 m Weight 131.542 kg Temp Pulse Resp BP Pulse Ox O2 Del Method 97.3 F L 58 L 18 142/77 91 Room Air 01/31/23 09:27 01/31/23 09:27 01/31/23 09:27 01/31/23 09:27 01/31/23 09:27 01/31/23 09:27 Preop Diagnosis: Left quadricep tendon rupture Operation Date: 01/31/23 10:40 Proposed Procedures p Left quadriceps tendon repair 28343,S76.102A(Left) - Dylan Zhang DO Familial anesthetic complications: None Was Beta Christian taken within 24 hours: N/A Was Clonidine taken within 24 hours: N/A Last intake: Intake Last Liquid Date 01/31/23 Last Liquid Time 05:45 Last Solid Date 01/30/23 Last Solid Time 14:00 Social Tobacco and No alcohol Exam alert, oriented x 3, clear to auscultation bilaterally and regular rate & rhythm Airway Mallampati: Class III Dentition: false and partials Pulmonary Chronic Obstructive Pulmonary Disease and Sleep Apnea CV/HEM Congestive Heart Failure and Hypertension aortic root aneurysm -monitored GI Gastroesophageal Reflux Disease crohn's disease Anesthetic Plan ASA status: 3 Anesthesia: General Risk of > 500 ml blood loss (7ml/kg in children): No Other Pertinent Information Patient denies nereida syndrome and lacks any physical sequelae of such, does state he's had moh's surgery several times though. 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 release 24 hr omeprazole 40 mg capsule,delayed 40 mg PO DAILY 03/29/20 01/31/23 01/30/23 History release ropinirole 2 mg tablet 2 mg PO DAILY 03/29/20 01/31/23 01/30/23 History furosemide 20 mg tablet (Lasix) 20 mg PO DAILY 30 days #30 tabs 06/28/20 01/31/23 01/30/23 Rx levalbuterol tartrate 45 2 inh inhalation Q6H PRN shortness 06/28/20 01/31/23 01/29/23 History mcg/actuation aerosol inhaler of breath or wheezing (Xopenex HFA) diphenhydramine HCl 25 mg capsule 25 mg PO DAILY PRN Allergy Symptoms 09/27/20 01/31/23 01/30/23 History (Allergy (diphenhydramine)) morphine 60 mg capsule,extended 30 mg PO BID 06/27/22 01/31/23 01/30/23 History release 24 hr multiphase gabapentin 600 mg tablet 1,800 mg PO BID 12/19/22 01/31/23 01/30/23 History tiotropium 2.5 mcg-olodaterol 2.5 2 puff inhalation DAILY #4 grams 01/10/23 01/30/23 01/27/23 Rx mcg/actuation mist for inhalation (Stiolto Respimat) trazodone 100 mg tablet 100 mg PO DAILY #30 tabs 01/22/23 01/31/23 01/30/23 Rx morphine 15 mg immediate release 15 mg PO BID PRN Pain 01/24/23 01/30/23 01/30/23 History tablet Allergies Allergy/AdvReac Type Severity Reaction Status Date / Time varenicline [From Chantix] Allergy Ghanshyam Verified 01/24/23 09:50 r PFSH Anesthesia Medical History Cardiomegaly Chondromalacia of both patellae Chronic back pain COPD (chronic obstructive pulmonary disease) Crohn's disease GERD (gastroesophageal reflux disease) Histoplasmosis HTN (hypertension) Hyperlipidemia Hypoxia Lung nodule Nereida syndrome Nicotine dependence Surgical History H/O hernia repair H/O shoulder surgery History of ear surgery Social History Smoking and tobacco status: current every day smoker cigarettes Packs smoked per day: 1 Years cigarettes smoked: 45 Quit status (tobacco): considering quitting Second hand smoke exposure: Yes Smoking risk assessment/counseling performed?: Yes Alcohol intake: never Substance/Drug Use: never Lives independently: Yes Household members: spouse Marital status: service: Yes Current occupational status: retired Pets and animals: Yes Do you think of yourself as: Straight/Heterosexual Current gender identity: Male Data Anesthesia Cardiac Studies: Sestamibi Stress Test (Cardiology) 08/02
[2023-01-31] MEDS: ceFAZolin 3,000 MG in sodium chloride 0.9% (100 ml) 100 ML 200 MG IV (13:42)
--- NOTE | 2023-01-31 13:43 | W.PM.OPSUD ---
Surgery/Procedure H&P Update DATE OF PROCEDURE: January 31, 2023 DATE H&P PERFORMED: 01/24/23 CHANGES TO PREVIOUS DOCUMENTATION: None. No change in HPI visit from 01/24/2023. Patient has left knee quadricep tendon tear. We talked about treatment options he is failed conservative approach this point time elects proceed with surgical intervention of the left quadricep tendon repair. Patient understands agrees to current plan. Questions answered.. PREOP DIAGNOSIS: Left quadricep tendon rupture PRIMARY INDICATION FOR PROCEDURE: Left quadricep tendon tear PLANNED PROCEDURE: Operation Date: 01/31/23 10:40 Proposed Procedures p Left quadriceps tendon repair 57783,S76.102A(Left) - Dylan Zhang DO
[2023-01-31] MEDS: vancomycin 1,000 MG SDV 1000 MG (15:18)
--- NOTE | 2023-01-31 15:53 | PM.OP2 ---
Brief Operative Note Date of procedure: 01/31/23 Pre-op diagnosis: Left quadricep tendon tear Post-op diagnosis: same Procedure Done: Left quadriceps tendon repair Surgeon: Dylan Zhang Estimated blood loss (mL): 50 Complications: none Post-op Plan: Partial weightbearing at 30 to 50% and locked extension of the leg wearing knee immobilizer. No Range of motion for 2 weeks and when you see Dr. Zhang at 2 week post op followup appt you will be instructed on Physical therapy at that time. Utilize crutches as needed Ice and elevate as needed for pain and swelling Take pain medication as prescribed Take antinausea medication as needed Take aspirin twice daily as prescribed for blood clot prevention. May supplement for pain with ibuprofen [id number] as needed Patient should leave dressing on in place for 72 hours, at that time may remove all dressings leave sutures in place may rinse incisions with warm soapy water pat dry and redress with dry dressing. No baths or soaks Follow-up in the orthopedic office in 2 weeks Contact the office for any questions or concerns Condition: stable Disposition: PACU Coding Level of Care Code Acute Code for Royer Vance
--- NOTE | 2023-01-31 15:55 | PM.OP ---
Operative Report Date of procedure: January 31, 2023 Pre-op diagnosis: Preop Diagnosis Left quadricep tendon rupture Post-op diagnosis: Left quadricep tendon high-grade partial tear with significant tendon laxity and tendinopathy Procedure done: Left quadricep tendon repair Implants: Arthrex #2 suture tape Surgeon: Dylan Zhang DO Lumber Puller: Danial Zhang PA-C PA-C was necessary for assistance in this case to assist with maintaining position during tendon repair as well as to assist with leg positioning and retractor and protection of neurovascular structures as well as to assist with wound closure. Estimated blood loss: 50mL 37 minutes IV fluids: 800 mL Complications: None Findings: See operative report narrative Condition: stable Disposition: same day Brief History: Patient's been seen and worked up in the outpatient setting is a pleasant 72-year-old gentleman who is failed conservative approach has had an MRI of the left knee findings consistent with laxity of the distal quadricep tendon with high-grade tear of the distal quadricep tendon at the insertion site. Patient has significant weakness and pain in this area he is failed conservative treatment at this point time through shared decision making would recommend a left quadricep tendon repair. He understands the risk benefits complication alternatives surgery wants proceed with surgical intervention all questions answered. Procedure: Patient seen eval in the preoperative holding area. Consent was reviewed and signed with patient. Correct extremity was then marked. Patient was then seen eval by anesthesia once cleared for surgery was taken back to the operative suite he is transported the OR table all bony prominences well-padded patient prepped secured to bed he is placed in supine position a bump was placed under the ipsilateral hip. He then underwent anesthesia per the anesthesia department. Once appropriate anesthetized a nonsterile tourniquet was applied to the left thigh. The left lower extremity was then prepped and draped in standard orthopedic fashion. Final timeout performed. Patient received appropriate preoperative antibiotics. Esmarch tourniquet was used exsanguinate the left lower extremity and tourniquet with is insufflated to 250 mmHg A standard anterior midline incision was made to the left knee sharp scalpel incision through skin and subcutaneous tissue created full-thickness skin flaps to lie came down directly over the quadricep tendon patient was found to have a high-grade partial tear with significant tendon laxity and disease tendinopathy of the tendon. At this point in time I then utilized a sharp scalpel incision to complete the tear going slightly into the retinaculum to have appropriate mobilization of the quadricep tendon. I then thoroughly irrigated the wound bed and the knee joint this was all suctioned free. Once this was performed I utilized electrocautery to electrocautery off the diseased tendon off of the superior pole of the patella to create appropriate wound bed surface. The tissue was mobilized anteriorly off of the patella to have appropriate full-thickness bed for tendon repair. This tissue was then debrided to healthy tissue as there was significant tendinopathy and diseased tendon at the distal aspects of the tendon as it inserts on the patella. I then at this point in time utilized sharp scalpel as well as curettage as well as rongeur to debride the superior pole patella for preparation of quadricep tendon repair. I then utilized the knife to debride the diseased tendon proximally to healthy bleeding tendon tissue. Once I was satisfied with my debridement preparation for repair I then took Arthrex's #2 suture tape and placed this in standard whipstitch fashion up and down the tendon with 2 strands on the 1 side of the tendon and with additional 2 strands on the other side of the tendon the suture ends were then subsequently cut and at this point time is ready for placement of bone tunnels I then keeping the finger underneath the patella drilled a midline tunnel as well as a medial lateral tunnel. I loaded my 2 medial sutures and my technical administrative assistant helped and passing knees with a Jitendra suture passer and shuttled the sutures through and then subsequently shuttled my medial and lateral individual's through bone tunnels utilizing Maciel suture passer. Once this was then performed I then placed a bump underneath the ankle and my technical administrative assistant held this leg position and I subsequently tied over the bone tunnels and had excellent fixation and opposition of the quadricep tendon repair on the superior pole patella. The small layer of good quadricep tendon tissue was then laid back over the repair and sutured on the spine itself in pants over vest fashion with an additional Arthrex #2 FiberWire with simple interrupted suture. I then repaired the retinaculum with Arthrex FiberWire as well. I then stressed my repair and took the knee through range of motion and there was no diastases or gapping at roughly 90 degrees at my repair.. I then kept the knee in extension. Thoroughly irrigated the wound bed. Tourniquet was deflated hemostasis satisfactory I then closed the incision in layered fashion of 2 oh strata fix suture 3 oh strata fix and rhonda for the skin Silverlon dressing applied with ABDs Kerlix and a double 6 inch Jaron and patient was placed in a Lalit brace locked in full extension. Patient was awakened from anesthesia and taken to PACU in stable condition. Disposition: Patient taken back in stable condition recovering well pain controlled. Patient received appropriate discharge structure as well as pain medication DVT prophylaxis postoperatively. To follow-up with us in the office in 2 weeks. Should be partial weightbearing with knee locked in full extension at this time. All questions answered we will see in the office in 2 weeks.
--- NOTE | 2023-01-31 15:56 | PM.PACU ---
PACU note Narrative: Patient is a 72-year-old male who just underwent a left quadriceps tendon repair. Pt transferred to PACU in stable condition. Dressing is dry. Left knee hinged brace in place. Pt is awake and alert. pt can wiggle toes and plantarflex and dorsiflex foot. Distal pulses are palpable toes are warm and well-perfused. Cap refill is normal and under 2 seconds. Sensation to foot is intact. Pain is controlled. Exam: awake Disposition: discharged
[2023-01-31] MEDS: fentaNYL 50 mcg/mL INJ 2mL 100 MCG IVP (15:58)
[2023-01-31] MEDS: HYDROmorphone 1 mg/mL INJ 1 mL 0.5 MG IVP (16:11)
[2023-01-31] MEDS: HYDROcodone-acetaminophen 5-325 mg Tablet 1 TAB PO (16:43)
--- NOTE | 2023-01-31 17:28 | ANE.PACU2 ---
Inpatient post-anesthesia follow up: Airway intact: Yes Vital signs: Temperature 97.5 F Pulse Rate 58 Respiratory Rate 16 Blood Pressure 131/81 Pulse Oximetry 96 Oxygen Delivery Me thod Room Air Oxygen Flow Rate 6 Fraction of Inspir ed Oxygen Hydration adequate: Yes Nausea and vomiting: No Pain level: 1 Mental status: Baseline
== END 2023-01-31 17:20 | disposition home or self-care (01) ==
PROVIDERS: PCP Family Medicine; Visit Provider Student in an Organized Health Care Education/Training Program
PROC: (CPT 27385; principal; 2023-01-31 10:30)
DX: S76.112A Strain of left quadriceps muscle, fascia and tendon, initial encounter (principal); X58.XXXA Exposure to other specified factors, initial encounter; J44.9 Chronic obstructive pulmonary disease, unspecified; G47.30 Sleep apnea, unspecified; I11.0 Hypertensive heart disease with heart failure; K21.9 Gastro-esophageal reflux disease without esophagitis; E78.5 Hyperlipidemia, unspecified; F17.210 Nicotine dependence, cigarettes, uncomplicated
CPT/HCPCS: 27385; J0131; J0330; J0690; J1170; J1885; J2704; J3010; J3370; J3490; J7030

== ENCOUNTER → 2023-02-15 10:18 | Outpatient (BNVA) | payer MEDICARE, OTHER, SELFPAY | PROVIDERS: PCP Family Medicine; Visit Provider Nurse Practitioner Family | DX: Z48.89 Encounter for other specified surgical aftercare (principal) | CPT/HCPCS: 99024 ==

== ENCOUNTER → 2023-02-20 08:17 | Outpatient (BNVA) | payer MEDICARE, OTHER, SELFPAY | PROVIDERS: PCP Family Medicine; Visit Provider Student in an Organized Health Care Education/Training Program | DX: S76.102A Unspecified injury of left quadriceps muscle, fascia and tendon, initial encounter (principal); X58.XXXA Exposure to other specified factors, initial encounter | CPT/HCPCS: 99024 ==

== ENCOUNTER 2023-02-21 12:38 | Outpatient (RCR) | payer MEDICARE, OTHER, SELFPAY | END 2023-03-03 23:59 | disposition home or self-care (01) | LOC: SPT 12:38 | PROVIDERS: PCP Family Medicine; Visit Provider Student in an Organized Health Care Education/Training Program | DX: Z47.89 Encounter for other orthopedic aftercare (principal) | CPT/HCPCS: 97032; 97110; 97161 ==

== ENCOUNTER 2023-02-22 15:19 | Emergency (ER) | payer MEDICARE, OTHER, SELFPAY ==
[2023-02-22 15:27] VITALS: BP 98/41; PULSE 69; RESP 16; TEMP 36.8; O2SAT 90
--- NOTE | 2023-02-22 15:41 | XRR_ITS ---
PROCEDURE INFORMATION: Exam: XR Right Ribs with PA Chest Exam date and time: 02/22/2023 3:52 PM Age: 72 years old Clinical indication: Injury or trauma; Fall; Rib area; Blunt trauma (contusions or hematomas); Additional info: Fall/trauma TECHNIQUE: Imaging protocol: Radiologic exam of the right ribs with PA chest. Views: 3 views COMPARISON: 1. CT angio chest [id number] 07/21/2022 10:17 AM 2. CR XR chest 1V portable [id number] 05/01/2022 9:53 AM FINDINGS: Lungs: Unremarkable. No consolidation. Pleural spaces: Unremarkable. No pleural effusion. No pneumothorax. Heart/Mediastinum: Unremarkable. No cardiomegaly. Vasculature: Aortic arch atherosclerotic calcification. Bones/joints: No discrete displaced rib fracture. Degenerative changes along the spine and acromioclavicular joints. Prior right glenoid labral repair. XR/XR ribs RT mn 3V w CXR1V [id number] IMPRESSION: No acute findings.
--- NOTE | 2023-02-22 15:41 | XRR_ITS ---
PROCEDURE INFORMATION: Exam: XR Left Femur Exam date and time: 02/22/2023 4:08 PM Age: 72 years old Clinical indication: Injury or trauma; Fall; Blunt trauma; Thigh or upper leg; Prior surgery; Surgery date: 1-6 months; Surgery type: Left quad tendon repair x 1 mo ago TECHNIQUE: Imaging protocol: Radiologic exam of the left femur. Views: 2 views. COMPARISON: CR XR hip LT 2-3V wo/w pel* [id number] 02/22/2023 4:00 PM FINDINGS: Bones/joints: No acute fracture or dislocation. Joints are maintained. Left knee joint effusion. Soft tissues: Suprapatellar soft tissue swelling. Vasculature: Mild arterial vascular calcifications. XR/XR femur LT min 2V* [id number] IMPRESSION: 1. No evidence of acute fracture or dislocation. 2. Left knee joint effusion and suprapatellar soft tissue swelling may be on the basis of reported recent surgery.
--- NOTE | 2023-02-22 15:41 | XRR_ITS ---
PROCEDURE INFORMATION: Exam: XR Left Hip Exam date and time: 02/22/2023 4:00 PM Age: 72 years old Clinical indication: Injury or trauma; Fall; Blunt trauma (contusions or hematomas); Hip; Prior surgery; Surgery date: 1-6 months; Surgery type: Left quad tendon repair x 1 mo ago; Additional info: Fall, one view pelvis too please TECHNIQUE: Imaging protocol: Radiologic exam of the left hip. Views: 2 or 3 views hip with pelvis when performed. COMPARISON: CT kidney stone [id number] 05/01/2022 6:15 AM FINDINGS: Bones/joints: No acute fracture or dislocation. Joint spacing and alignment are maintained. Lower lumbar spine degenerative changes. Soft tissues: Unremarkable. XR/XR hip LT 2-3V wo/w pel* [id number] IMPRESSION: No acute findings.
--- NOTE | 2023-02-22 15:41 | XRR_ITS ---
PROCEDURE INFORMATION: Exam: XR Left Knee Exam date and time: 02/22/2023 4:13 PM Age: 72 years old Clinical indication: Injury or trauma; Fall; Blunt trauma; Prior surgery; Surgery date: 1-6 months; Surgery type: Left quad tendon repair x 1 mo ago, left knee surg x1mo ago TECHNIQUE: Imaging protocol: Radiologic exam of the left knee. Views: 3 views. COMPARISON: 1. MR knee LT wo con* [id number] 01/03/2023 11:19 AM 2. CR XR knees AP WB w LT lmt ORTH 05/30/2022 10:07 AM 3. CR XR femur LT min 2V* [id number] 02/22/2023 4:08 PM FINDINGS: Bones/joints: No acute fracture or dislocation. Joint spacing and alignment are maintained. Suprapatellar joint effusion. Soft tissues: Suprapatellar soft tissue swelling. Undulating soft tissue thickening along the patellar tendon. Vasculature: Mild arterial vascular calcifications. XR/XR knee LT 3V* [id number] IMPRESSION: 1. Joint effusion without acute fracture or dislocation. 2. Soft tissue findings may be on the basis of recent quadriceps tendon repair. However, correlate for clinical findings of re-injury.
--- NOTE | 2023-02-22 15:42 | W.ED.FALL ---
Documented by User: JAMEEL Martinez 02/22/23 16:48 HPI - Fall General: Chief Complaint: Fall Stated Complaint: left leg pain post surgery Time Seen by Provider: 02/22/23 15:21 Source: patient Mode of arrival: EMS Limitations: no limitations History of Present Illness: Patient is a 72-year-old male who presents to ED today for evaluation following a fall. Patient states he was at physical therapy today working on therapy for his left lower extremity as he underwent left quadricep tendon repair by Dr. Zhang approximately 2 to 3 weeks ago. He states therapy went well. When he returned home he was walking to the bathroom using his walker when the walker got caught up on a rug causing him to trip and fall. Patient states most of his weight landed on his left hip and upper leg. He states he then struck his right ribs. Patient states he does not feel short of breath. He does have pain with deep inhalation. Patient reports he normally requires 3 L of oxygen at night. States he has not been able to bear weight on the left lower extremity since the fall. MD complaint: fall Onset (ago): hour(s) Fall from: standing Fall witnessed: no Place fall occurred: home Loss of consciousness: None Prolonged down time: no Symptoms prior to fall: none Context: tripped/slipped Location of injury: chest Location of injury - extremities: Left: thigh Severity: moderate Associated symptoms-after fall: Reports chest pain (R rib pain) and difficulty walking (secondary to left hip pain); Denies abdominal pain, headache(s), hematuria, lightheadedness or neck pain Review of Systems Eyes: Denies: change in vision, blurry vision, photophobia, eye discharge, floaters or seeing flashes ENMT: Denies: throat pain, odynophagia, ear or mastoid pain, ear discharge, nasal discharge, epistaxis or sinus pain Card: Reports: chest pain (R rib pain); Denies: palpitations, lightheadedness, syncope or pre-syncope Resp: Denies: dyspnea or pain on inspiration GI: Denies: abdominal pain : Denies: flank pain or hematuria Musc: Reports: extremity pain (L upper leg) and joint pain (L hip); Denies: neck pain or back pain Neuro: Reports: difficulty walking (secondary to left hip pain); Denies: headache(s), numbness in extremities, weakness in extremities or sensory changes PFSH ED PFSH: Medical History Cardiomegaly Chondromalacia of both patellae Chronic back pain COPD (chronic obstructive pulmonary disease) Crohn's disease GERD (gastroesophageal reflux disease) Histoplasmosis HTN (hypertension) Hyperlipidemia Hypoxia Lung nodule Efe syndrome Nicotine dependence Surgical History H/O hernia repair H/O shoulder surgery History of ear surgery Social History Smoking and tobacco status: current every day smoker cigarettes Packs smoked per day: 1 Years cigarettes smoked: 45 Quit status (tobacco): considering quitting Second hand smoke exposure: Yes Smoking risk assessment/counseling performed?: Yes Alcohol intake: never Substance/Drug Use: never Lives independently: Yes Household members: spouse Marital status: service: Yes Current occupational status: retired Pets and animals: Yes Do you think of yourself as: Straight/Heterosexual Current gender identity: Male Physical Exam Const: COMMON NORMALS: no acute distress, average body habitus, patient oriented x3, no limitations, healthy appearing, alert and well nourished GENERAL APPEARANCE: cooperative ORIENTATION/CONSCIOUSNESS: Yes awake, Yes oriented to person, Yes oriented to place and Yes oriented to time HENMT: COMMON NORMALS: normocephalic, atraumatic and TM's normal bilaterally HEAD & SCALP: normal to inspection, normocephalic and atraumatic; no Joseph's sign, no hematoma and no raccoon eyes FACE & SINUS: normal facial exam TYMPANIC MEMBRANE: TM's normal bilaterally MOUTH: other (no intraoral injuries noted) Eye: COMMON NORMALS: Equal, round and reactive pupils present and EOMs intact bilaterally GENERAL EYE: appearance normal, both eyes and all related structures and normal light reflex PUPIL: Yes Equal, round and reactive pupils present DIRECT OPHTHALMOSCOPY: Yes normal light reflex Neck/C-Spine: COMMON NORMALS: full ROM GENERAL: Yes normal visual inspection CERVICAL SPINE: Yes cervical ROM normal, No pain with cervical ROM, No Cervical spine tenderness, No step off deformity and No Paracervical muscle tenderness Chest: COMMONS NORMALS: normal inspection of the chest OTHER: TTP R anteriolateral mid ribs; no crepitus Resp: COMMON NORMALS: normal respiratory effort and clear to auscultation bilaterally AUSCULTATION: clear to auscultation bilaterally Cardio: COMMON NORMALS: regular rate and regular rhythm RATE: regular rate RHYTHM: regular rhythm GI: COMMON NORMALS: Normal to inspection, nondistended, normoactive bowel sounds present, Soft to palpation, non-tender, No hepatosplenomegaly present and no masses INSPECTION: Yes normal to inspection and No abdominal wall ecchymosis AUSCULTATION: Yes normoactive bowel sounds PALPATION: Yes Soft to palpation and Yes No hepatosplenomegaly present Back/Pelvis: COMMON NORMALS: thoracic and lumbar spine normal to inspection, no thoracic nor lumbar tenderness and thoraco-lumbar ROM normal Extremity: COMMON NORMALS: normal to inspection and capillary refill normal GENERAL: Yes normal exam except as noted LEFT LOWER EXTREMITY: Yes hip joint (TTP lateral hip joint and upper thigh) Left hip: Yes ROM (hard to perform ROM as patient is in hinged knee brace) and Yes neurovascular exam (normal) Neuro: DIMAS COMA SCALE: document GCS findings [place] coma scale eye opening: Spontaneous [place] coma scale verbal response: Orientated [place] coma scale motor response: Obey commands [place] coma scale total score: 15 COMMON NORMALS: patient oriented x3, CN's II-XII intact bilaterally, moves all extremities, no focal motor deficits, no sensory deficits noted and gait normal SENSORIUM/ORIENTATION: Yes alert, Yes oriented to person, Yes oriented to place and Yes oriented to time SPEECH: speech normal GAIT: Yes Normal gait present Skin: COMMON NORMALS: no rashes or lesions noted GENERAL SKIN EXAM: no rashes or lesions noted TRAUMA: no lacerations or abrasions Course Vital Signs: Vital signs: Vital Signs Temperature 98.3 F 02/22/23 15:27 Pulse Rate 81 02/22/23 15:49 Respiratory Rate 18 02/22/23 15:49 Blood Pressure 102/51 02/22/23 15:49 Pulse Oximetry 90 02/22/23 15:27 Oxygen Delivery Me thod Room Air 02/22/23 15:27 MDM - Fall Lab Data 02/22/23 16:39 02/22/23 16:39 Radiology Impressions Femur X-Ray 02/22/23 15:41 IMPRESSION: 1. No evidence of acute fracture or dislocation. 2. Left knee joint effusion and suprapatellar soft tissue swelling may be on the basis of reported recent surgery. Hip/Pelvis X-Ray 02/22/23 15:41 IMPRESSION: No acute findings. Knee X-Ray 02/22/23 15:41 IMPRESSION: 1. Joint effusion without acute fracture or dislocation. 2. Soft tissue findings may be on the basis of recent quadriceps tendon repair. However, correlate for clinical findings of re-injury. Ribs X-Ray 02/22/23 15:41 IMPRESSION: No acute findings. Laboratory Results WBC 9.51 10^3/uL (3.29-11.43) 02/22/23 16:39 RBC 4.19 10^6/uL (3.85-5.65) 02/22/23 16:39 Hgb 12.60 g/dL (11.27-16.99) 02/22/23 16:39 Hct 38.2 % (37-53) 02/22/23 16:39 MCV 91.2 fl (82-101) 02/22/23 16:39 MCH 30.1 pg (27-33) 02/22/23 16:39 MCHC 33.0 g/dL (30-55) 02/22/23 16:39 RDW 13.7 % (12.1-15.1) 02/22/23 16:39 Plt Count 213 10^3/cmm (157-399) 02/22/23 16:39 MPV 9.4 fL (7.4-10.4) 02/22/23 16:39 Neut % (Auto) 75.8 % 02/22/23 16:39 Lymph % (Auto) 13.9 % 02/22/23 16:39 [place] % (Auto) 7.5 % 02/22/23 16:39 Eos % (Auto) 2.2 % 02/22/23 16:39 Baso % (Auto) 0.3 % 02/22/23 16:39 Neut # (Auto) 7.21 10^3/uL (1.8-7.7) 02/22/23 16:39 Lymph # (Auto) 1.3 10^3/uL (0.8-4.8) 02/22/23 16:39 [place] # (Auto) 0.7 10^3/uL (0.2-0.9) 02/22/23 16:39 Eos # (Auto) 0.2 10^3/uL (0.0-0.8) 02/22/23 16:39 Baso # (Auto) 0.0 10^3/uL (0.0-0.1) 02/22/23 16:39 Nucleated RBC % (auto) 0 % 02/22/23 16:39 Nucleated RBCs # 0.0 /100WBC 02/22/23 16:39 Sodium 136 mmol/L (136-145) 02/22/23 16:39 Potassium 4.5 mmol/L (3.5-5.1) 02/22/23 16:39 Chloride 99 mmol/L (98-107) 02/22/23 16:39 Carbon Dioxide 28 mmol/L (22-29) 02/22/23 16:39 Anion Gap 13.5 (5-19) 02/22/23 16:39 BUN 18 mg/dL (8-23) 02/22/23 16:39 Creatinine 1.2 mg/dL (0.7-1.2) 02/22/23 16:39 GFR Calculation 59.9 mL/min (90-130) L 02/22/23 16:39 Glucose 133 mg/dL (65-115) H 02/22/23 16:39 Calculated Osmolality 286 mOsm/kg (285-295) 02/22/23 16:39 Calcium 8.8 mg/dL (8.5-10.5) 02/22/23 16:39 Total Bilirubin 0.5 mg/dL (0.15-1.2) 02/22/23 16:39 AST 13 U/L (0-40) 02/22/23 16:39 ALT 10 U/L (0-41) 02/22/23 16:39 Alkaline Phosphatase 53 U/L (40-130) 02/22/23 16:39 Total Protein 6.0 g/dL (6.6-8.7) L 02/22/23 16:39 Albumin 3.4 g/dL (3.5-5.2) L 02/22/23 16:39 Globulin 2.6 g/dL (1.3-4.6) 02/22/23 16:39 Discharge Plan Discharge Patient Disposition: Home Clinical Impression: Acute pain of left hip Fall Qualifiers: Encounter type: initial encounter Qualified Code(s): W19.XXXA - Unspecified fall, initial encounter Contusion of rib on right side Qualifiers: Encounter type: initial encounter Qualified Code(s): S20.211A - Contusion of right front wall of thorax, initial encounter Condition: Stable Prescriptions: No Action lidocaine 5 % adhesive patch,medicated 1 patch TOPICAL DAILY Rx Instructions: leave on most painful area for up to 12 hrs mesalamine 500 mg capsule, extended release 3,600 mg PO ONCE metoprolol succinate 50 mg capsule,sprinkle,ER 24hr 25 mg PO BID ropinirole 2 mg tablet 2 mg PO DAILY lisinopril 40 mg tablet 20 mg PO DAILY omeprazole 40 mg capsule,delayed release(DR/EC) 40 mg PO DAILY gabapentin 600 mg tablet 1,800 mg PO BID levalbuterol tartrate [Xopenex HFA] 45 mcg/actuation HFA aerosol inhaler 2 inh inhalation Q6H PRN (Reason: shortness of breath or wheezing) furosemide [Lasix] 20 mg tablet 20 mg PO DAILY 30 Days Qty: 30 3RF diphenhydramine HCl [Allergy (diphenhydramine)] 25 mg capsule 25 mg PO DAILY PRN (Reason: Allergy Symptoms) morphine 15 mg tablet 15 mg PO BID PRN (Reason: Pain) Stiolto Respimat 2.5-2.5 mcg/actuation mist 2 puff inhalation DAILY Qty: 4 6RF trazodone 100 mg tablet 100 mg PO DAILY Qty: 30 11RF morphine 30 mg Capsule, Er Multiphase 24 Hr 30 mg PO BID Discharge Orders: Discharge ED (Routine); Ordered 02/22/23 Ordered By: Adiel Perez Referrals: Laureano Abraham MD [Primary Care Provider] - Discharge Diet: Usual diet Discharge Activity: Increase activity as tolerated Patient Instructions: Musculoskeletal Pain (ED) Activity Restrictions/Additional Instructions: Increase activity as tolerated. After injury to the first 3 days of the worst days after that you should start seeing some improvement. It is important to increase activity after 3 days in order to recover. If you have increasing swelling to the lower extremity with redness or fever you need to return to the ER. Follow-up with equal opportunity specialist for repeat evaluation of surgery site. Follow-up with primary care as needed. Sign Out Sign Out Data: Patient Sign Out occurred on 02/22/23 at 16:52. Patient's care was discussed, and care was transferred from to Aidel Perez. Coding Level of Care Code ED Distribution Sales Representative for [facility] Documented by User: CELINA Egan 02/22/23 17:26 HPI - Fall General: Chief Complaint: Fall Stated Complaint: left leg pain post surgery Time Seen by Provider: 02/22/23 15:21 PFSH ED PFSH: Medical History Cardiomegaly Chondromalacia of both patellae Chronic back pain COPD (chronic obstructive pulmonary disease) Crohn's disease GERD (gastroesophageal reflux disease) Histoplasmosis HTN (hypertension) Hyperlipidemia Hypoxia Lung nodule Efe syndrome Nicotine dependence Surgical History H/O hernia repair H/O shoulder surgery History of ear surgery Social History Smoking and tobacco status: current every day smoker cigarettes Packs smoked per day: 1 Years cigarettes smoked: 45 Quit status (tobacco): considering quitting Second hand smoke exposure: Yes Smoking risk assessment/counseling performed?: Yes Alcohol intake: never Substance/Drug Use: never Lives independently: Yes Household members: spouse Marital status: service: Yes Current occupational status: retired Pets and animals: Yes Do you think of yourself as: Straight/Heterosexual Current gender identity: Male Physical Exam Neuro: DIMAS COMA SCALE: document GCS findings [place] coma scale total score: 15 Course Vital Signs: Vital signs: Vital Signs Temperature 98.3 F 02/22/23 15:27 Pulse Rate 81 02/22/23 15:49 Respiratory Rate 18 02/22/23 15:49 Blood Pressure 102/51 02/22/23 15:49 Pulse Oximetry 90 02/22/23 15:27 Oxygen Delivery Me thod Room Air 02/22/23 15:27 MDM - Fall Medical Decision Making 72-year-old male patient comes in today for evaluation after a fall. I received this patient from Cortney Andrews PA-C, at the end of her shift. Patient reports some increased pain and difficulty of standing on the left lower extremity. Patient had recent surgical repair of quadriceps. Differential diagnosis includes but not limited to fracture, sprain, contusion. X-rays of the femur, hip, knee, and ribs were unremarkable for fracture. CBC and CMP were normal. Reviewed exam with patient and spouse with recommendations for treatment and follow-up. Patient reported understanding and agreed to plan. Patient was stable and discharged to home. Lab Data 02/22/23 16:39 02/22/23 16:39 Radiology Impressions Femur X-Ray 02/22/23 15:41 IMPRESSION: 1. No evidence of acute fracture or dislocation. 2. Left knee joint effusion and suprapatellar soft tissue swelling may be on the basis of reported recent surgery. Hip/Pelvis X-Ray 02/22/23 15:41 IMPRESSION: No acute findings. Knee X-Ray 02/22/23 15:41 IMPRESSION: 1. Joint effusion without acute fracture or dislocation. 2. Soft tissue findings may be on the basis of recent quadriceps tendon repair. However, correlate for clinical findings of re-injury. Ribs X-Ray 02/22/23 15:41 IMPRESSION: No acute findings. Laboratory Results WBC 9.51 10^3/uL (3.29-11.43) 02/22/23 16:39 RBC 4.19 10^6/uL (3.85-5.65) 02/22/23 16:39 Hgb 12.60 g/dL (11.27-16.99) 02/22/23 16:39 Hct 38.2 % (37-53) 02/22/23 16:39 MCV 91.2 fl (82-101) 02/22/23 16:39 MCH 30.1 pg (27-33) 02/22/23 16:39 MCHC 33.0 g/dL (30-55) 02/22/23 16:39 RDW 13.7 % (12.1-15.1) 02/22/23 16:39 Plt Count 213 10^3/cmm (157-399) 02/22/23 16:39 MPV 9.4 fL (7.4-10.4) 02/22/23 16:39 Neut % (Auto) 75.8 % 02/22/23 16:39 Lymph % (Auto) 13.9 % 02/22/23 16:39 [place] % (Auto) 7.5 % 02/22/23 16:39 Eos % (Auto) 2.2 % 02/22/23 16:39 Baso % (Auto) 0.3 % 02/22/23 16:39 Neut # (Auto) 7.21 10^3/uL (1.8-7.7) 02/22/23 16:39 Lymph # (Auto) 1.3 10^3/uL (0.8-4.8) 02/22/23 16:39 [place] # (Auto) 0.7 10^3/uL (0.2-0.9) 02/22/23 16:39 Eos # (Auto) 0.2 10^3/uL (0.0-0.8) 02/22/23 16:39 Baso # (Auto) 0.0 10^3/uL (0.0-0.1) 02/22/23 16:39 Nucleated RBC % (auto) 0 % 02/22/23 16:39 Nucleated RBCs # 0.0 /100WBC 02/22/23 16:39 Sodium 136 mmol/L (136-145) 02/22/23 16:39 Potassium 4.5 mmol/L (3.5-5.1) 02/22/23 16:39 Chloride 99 mmol/L (98-107) 02/22/23 16:39 Carbon Dioxide 28 mmol/L (22-29) 02/22/23 16:39 Anion Gap 13.5 (5-19) 02/22/23 16:39 BUN 18 mg/dL (8-23) 02/22/23 16:39 Creatinine 1.2 mg/dL (0.7-1.2) 02/22/23 16:39 GFR Calculation 59.9 mL/min (90-130) L 02/22/23 16:39 Glucose 133 mg/dL (65-115) H 02/22/23 16:39 Calculated Osmolality 286 mOsm/kg (285-295) 02/22/23 16:39 Calcium 8.8 mg/dL (8.5-10.5) 02/22/23 16:39 Total Bilirubin 0.5 mg/dL (0.15-1.2) 02/22/23 16:39 AST 13 U/L (0-40) 02/22/23 16:39 ALT 10 U/L (0-41) 02/22/23 16:39 Alkaline Phosphatase 53 U/L (40-130) 02/22/23 16:39 Total Protein 6.0 g/dL (6.6-8.7) L 02/22/23 16:39 Albumin 3.4 g/dL (3.5-5.2) L 02/22/23 16:39 Globulin 2.6 g/dL (1.3-4.6) 02/22/23 16:39 All radiology interpretation(s) finalized by discharge Discharge Plan Discharge Patient Disposition: Home Clinical Impression: Acute pain of left hip Fall Qualifiers: Encounter type: initial encounter Qualified Code(s): W19.XXXA - Unspecified fall, initial encounter Contusion of rib on right side Qualifiers: Encounter type: initial encounter Qualified Code(s): S20.211A - Contusion of right front wall of thorax, initial encounter Condition: Stable Prescriptions: No Action lidocaine 5 % adhesive patch,medicated 1 patch TOPICAL DAILY Rx Instructions: leave on most painful area for up to 12 hrs mesalamine 500 mg capsule, extended release 3,600 mg PO ONCE metoprolol succinate 50 mg capsule,sprinkle,ER 24hr 25 mg PO BID ropinirole 2 mg tablet 2 mg PO DAILY lisinopril 40 mg tablet 20 mg PO DAILY omeprazole 40 mg capsule,delayed release(DR/EC) 40 mg PO DAILY gabapentin 600 mg tablet 1,800 mg PO BID levalbuterol tartrate [Xopenex HFA] 45 mcg/actuation HFA aerosol inhaler 2 inh inhalation Q6H PRN (Reason: shortness of breath or wheezing) furosemide [Lasix] 20 mg tablet 20 mg PO DAILY 30 Days Qty: 30 3RF diphenhydramine HCl [Allergy (diphenhydramine)] 25 mg capsule 25 mg PO DAILY PRN (Reason: Allergy Symptoms) morphine 15 mg tablet 15 mg PO BID PRN (Reason: Pain) Stiolto Respimat 2.5-2.5 mcg/actuation mist 2 puff inhalation DAILY Qty: 4 6RF trazodone 100 mg tablet 100 mg PO DAILY Qty: 30 11RF morphine 30 mg Capsule, Er Multiphase 24 Hr 30 mg PO BID Discharge Orders: Discharge ED (Routine); Ordered 02/22/23 Ordered By: Adiel Perez Referrals: Laureano Abraham MD [Primary Care Provider] - Discharge Diet: Usual diet Discharge Activity: Increase activity as tolerated Patient Instructions: Musculoskeletal Pain (ED) Activity Restrictions/Additional Instructions: Increase activity as tolerated. After injury to the first 3 days of the worst days after that you should start seeing some improvement. It is important to increase activity after 3 days in order to recover. If you have increasing swelling to the lower extremity with redness or fever you need to return to the ER. Follow-up with equal opportunity specialist for repeat evaluation of surgery site. Follow-up with primary care as needed. Sign Out Sign Out Data: Patient Sign Out occurred on 02/22/23 at 16:52. Patient's care was discussed, and care was transferred from to Adiel Perez. Coding Level of Care Code ED Distribution Sales Representative for Royer Vance
[2023-02-22 15:49] VITALS: BP 102/51; PULSE 81; RESP 18
[2023-02-22] MEDS: sodium chloride 0.9% 500 ML 999 ML IV (16:20)
[2023-02-22 16:47] LABS: Basophils % 0.3 %; Eosinophils # 0.2 10^3/uL (0.0-0.8); Eosinophils % 2.2 %; Hematocrit 38.2 % (37-53); Lymphocytes # 1.3 10^3/uL (0.8-4.8); Lymphocytes % 13.9 %; Mean Corpuscular Hemoglobin 30.1 pg (27-33); Mean Corpuscular Volume 91.2 fl (82-101); Mean Platelet Volume 9.4 fL (7.4-10.4); Monocytes # 0.7 10^3/uL (0.2-0.9); Monocytes % 7.5 %; Neutrophils # 7.21 10^3/uL (1.8-7.7); Neutrophils % 75.8 %; Nucleated Red Blood Cells % 0 %; Platelet Count 213 10^3/cmm (157-399); Red Blood Count 4.19 10^6/uL (3.85-5.65); Red Cell Distribution Width 13.7 % (12.1-15.1); White Blood Count 9.51 10^3/uL (3.29-11.43)
[2023-02-22 17:06] LABS: Alanine Aminotransferase 10 U/L (0-41); Albumin Level 3.4 g/dL (3.5-5.2); Alkaline Phosphatase 53 U/L (40-130); Anion Gap 13.5 (5-19); Aspartate Amino Transferase 13 U/L (0-40); Blood Urea Nitrogen 18 mg/dL (8-23); Calcium 8.8 mg/dL (8.5-10.5); Carbon Dioxide 28 mmol/L (22-29); Chloride 99 mmol/L (98-107); Globulin 2.6 g/dL (1.3-4.6); Glomerular Filtration Rate 59.9 mL/min (90-130); Glucose 133 mg/dL (65-115); Osmolality Calculated 286 mOsm/kg (285-295); Potassium 4.5 mmol/L (3.5-5.1); Sodium 136 mmol/L (136-145); Total Bilirubin 0.5 mg/dL (0.15-1.2)
== END 2023-02-22 18:42 | disposition home or self-care (01) ==
PROVIDERS: Physician Assistant; Emergency Provider Nurse Practitioner Family; PCP Family Medicine
DX: S20.211A Contusion of right front wall of thorax, initial encounter (principal); J44.9 Chronic obstructive pulmonary disease, unspecified; I10 Essential (primary) hypertension; E78.5 Hyperlipidemia, unspecified; F17.210 Nicotine dependence, cigarettes, uncomplicated; W18.09XA Striking against other object with subsequent fall, initial encounter
CPT/HCPCS: 36415; 71101; 73502; 73552; 73562; 80053; 85025; 99284; J7040

== ENCOUNTER 2023-03-08 13:10 | Emergency (ER) | payer MEDICARE, OTHER, SELFPAY ==
--- NOTE | 2023-03-08 13:12 | XR_ITS ---
WS: [id number] EXAMINATION: XR ankle RT min 3V* [id number] REASON FOR EXAM: Pain COMPARISON: 03/17/2021 ORDER DATE: 03/08/2023 1:13 PM TECHNIQUE: 3 views of the right ankle were obtained. X-RAY FINDINGS: Asymmetric widening of the medial tibiotalar joint. Mild distal tibia exostosis. No fracture, osteolytic or osteoblastic change. Pes planus deformity. Ankle soft tissue swelling. Inferior calcaneal spur. IMPRESSION: 1. Medial tibiotalar joint asymmetric widening; correlate for instability. 2. Pes planus deformity. 3. Inferior calcaneal spur.
--- NOTE | 2023-03-08 13:16 | XR_ITS ---
WS: [id number] EXAMINATION: XR knee LT 3V* [id number] REASON FOR EXAM: trauma COMPARISON: 02/22/2023 ORDER DATE: 03/08/2023 1:17 PM FINDINGS: There is no sign of any acute osseous or articular abnormality. There are no specific soft tissue abn ormalities. Leg immobilizer creating considerable artifact superimposing the joint. Minor scattered vascular calcifications. IMPRESSION: No acute change
[2023-03-08 13:17] VITALS: BP 116/61; PULSE 68; RESP 16; TEMP 36.6; O2SAT 91; BMI 35.2
--- NOTE | 2023-03-08 13:17 | ED_ITS ---
HPI - Extremity Injury (Lower) General: Chief Complaint: Extremity Injury, Lower Stated Complaint: rt ankle pain from fall Time Seen by Provider: 03/08/23 13:12 Source: patient Mode of arrival: EMS History of Present Illness: 72-year-old male presents emergency room with complaint of right ankle pain after a fall. He recently had a left knee reconstruction for an ACL injury he was trying to move from a chair to a wheelchair with the assistance of his twisted and fell and injured his left ankle was unable to stand and called EMS. Complaining of having hit his left knee as well. MD complaint: knee injury (Left) and ankle injury (Right) Onset (ago): minute(s) Place: home Severity: mild Context: fall Other symptoms: none Review of Systems Const: Denies: fever(s), chills, body aches, change in appetite, fatigue or malaise ENMT: Denies: throat pain, ear or mastoid pain, nasal discharge or nasal congestion Card: Denies: chest pain, edema, dyspnea on exertion or orthopnea Resp: Denies: dyspnea, productive cough or non-productive cough GI: Denies: abdominal pain, nausea, vomiting, hematemesis, coffee ground emesis, diarrhea, constipation, bloating, hematochezia or melena : Denies: flank pain, dysuria, urinary frequency or urinary urgency Skin/Breast: Denies: rash or pruritus PFSH ED PFSH: Medical History Cardiomegaly Chondromalacia of both patellae Chronic back pain COPD (chronic obstructive pulmonary disease) Crohn's disease GERD (gastroesophageal reflux disease) Histoplasmosis HTN (hypertension) Hyperlipidemia Hypoxia Lung nodule Efe syndrome Nicotine dependence Surgical History H/O hernia repair H/O shoulder surgery History of ear surgery Social History Smoking and tobacco status: current every day smoker cigarettes Packs smoked per day: 1 Years cigarettes smoked: 45 Quit status (tobacco): considering quitting Second hand smoke exposure: Yes Smoking risk assessment/counseling performed?: Yes Alcohol intake: never Substance/Drug Use: never Lives independently: Yes Household members: spouse Marital status: service: Yes Current occupational status: retired Pets and animals: Yes Do you think of yourself as: Straight/Heterosexual Current gender identity: Male Physical Exam Const: GENERAL APPEARANCE: cooperative and comfortable ORIENTATION/CONSCIOUSNESS: Yes awake, Yes oriented to person, Yes oriented to place and Yes oriented to time HENMT: COMMON NORMALS: normocephalic, atraumatic and hearing grossly normal bilaterally HEAD & SCALP: normocephalic and atraumatic Resp: COMMON NORMALS: normal respiratory effort, No retractions, No use of accessory muscles and clear to auscultation bilaterally AUSCULTATION: clear to auscultation bilaterally Cardio: COMMON NORMALS: regular rate, regular rhythm and No murmurs present (Cardio) RATE: regular rate RHYTHM: regular rhythm Extremity: OTHER: 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 There also appears to be chronic deformities of the right ankle. No open wounds no abrasions. Examination of the left knee well- healed scar no dehiscence no deformities or swelling. Neuro: SENSORIUM/ORIENTATION: Yes oriented to person, Yes oriented to place and Yes oriented to time Skin: COMMON NORMALS: no rashes or lesions noted GENERAL SKIN EXAM: no rashes or lesions noted Course Vital Signs: Vital signs: Vital Signs Temperature 97.8 F 03/08/23 13:17 Pulse Rate 68 03/08/23 13:17 Respiratory Rate 16 03/08/23 13:17 Blood Pressure 116/61 03/08/23 13:17 Pulse Oximetry 91 03/08/23 13:17 Oxygen Delivery Me thod Room Air 03/08/23 13:17 MDM - Extremity Injury (Lower) Medical Decision Making X-ray of the right ankle and left knee unremarkable no fractures per radiology review discussed with orthopedics will discharge home continue previous outpatient instructions and follow-up with Ortho. Discussed with Dr. Zhang he did asked that we arrange for an outpatient ultrasound of the right suprapatellar tendon which we will schedule. feels like she is having difficult time managing the patient at home they do have a commode they are not able to get him up and around he does not qualify for an acute admission. Patient and his are wanting to be admitted to the retirement I did contact Dr. Rivera made him aware we reviewed the case we both agree he likely would need retirement level of care however the logistics of making that happen are somewhat difficult. We will bolus although agree at this point he does not have anything qualifying to admit for. We did have case management come down discussed with him they do not have any insurance coverage and financially this is a very very difficult thing for them to proceed with. We will order home health eval to see if they can provide some extra assistance encouraged him to follow-up with Dr. Rivera's office as well. Contacted Miguel's office they are willing to follow him if he is admitted Case management came down after significant amount of leg work the patient wishes to be admitted he will be private pay to [place] making arrangements for transportation. Medical Records I reviewed the patient's medical records. Lab Data I reviewed the patient's lab results. All radiology interpretation(s) finalized by discharge Discharge Plan Discharge Patient Disposition: Home Clinical Impression: Ankle sprain and strain, Injury of meniscus of left knee, Injury of left quadriceps femoris muscle Condition: Stable Prescriptions: No Action lidocaine 5 % adhesive patch,medicated 1 patch TOPICAL DAILY Rx Instructions: leave on most painful area for up to 12 hrs mesalamine 500 mg capsule, extended release 3,600 mg PO ONCE metoprolol succinate 50 mg capsule,sprinkle,ER 24hr 25 mg PO BID ropinirole 2 mg tablet 2 mg PO DAILY lisinopril 40 mg tablet 20 mg PO DAILY omeprazole 40 mg capsule,delayed release(DR/EC) 40 mg PO DAILY gabapentin 600 mg tablet 1,800 mg PO BID levalbuterol tartrate [Xopenex HFA] 45 mcg/actuation HFA aerosol inhaler 2 inh inhalation Q6H PRN (Reason: shortness of breath or wheezing) furosemide [Lasix] 20 mg tablet 20 mg PO DAILY 30 Days Qty: 30 3RF diphenhydramine HCl [Allergy (diphenhydramine)] 25 mg capsule 25 mg PO DAILY PRN (Reason: Allergy Symptoms) morphine 15 mg tablet 15 mg PO BID PRN (Reason: Pain) Stiolto Respimat 2.5-2.5 mcg/actuation mist 2 puff inhalation DAILY Qty: 4 6RF trazodone 100 mg tablet 100 mg PO DAILY Qty: 30 11RF morphine 30 mg Capsule, Er Multiphase 24 Hr 30 mg PO BID Discharge Orders: Discharge ED (Routine); Ordered 03/08/23 Ordered By: Keith Menjivar Referrals: Laureano Abraham MD [Primary Care Provider] - Discharge Diet: Usual diet Discharge Activity: Resume usual activity Patient Instructions: Opioid Safety, Pain Management Coding Level of Care Code ED Aquatic Physiotherapist for Royer Vance
--- NOTE | 2023-03-08 16:11 | PC.SOCIAL ---
Pt request snf Dr Otto Mccracken,RN-CM to come see pt. They are requesting snf. Cm followed up with pt & . Informed them that pt will not qualify for his medicare to cover a snf. If they want a snf they would have to private pay. They said they cannnot private pay & asked what other options they have available. Manager Enterprise called Saundra at [facility] She said they can take pt's from the ER, she said it will probably be in the morning. Manager Enterprise informed pt & of this. They asked if [facility] can [facility], video game script writer said yes, if they will private pay, & it is around $225/day or $6500.00/month. They said okay, they will pay. Manager Enterprise called Meryl at [facility], she said to send her the referral & they will look at if. Referral faxed to [facility]. Called Saundra at [facility] & let her know pt has changed their mind.
--- NOTE | 2023-03-08 16:45 | PC.SOCIAL ---
[facility] accepts. Meryl from [facility] called back & said they can accept pt & can take pt tonight. Notified the ER they can setup an ambulance ride to transport him over there. No other needs voiced for CM.
[2023-03-08 17:39] LABS: SARS Covid-2 Antigen Negative (Negative)
[2023-03-08 17:43] VITALS: BP 116/61; PULSE 68; RESP 16; O2SAT 91
== END 2023-03-08 17:48 | disposition home or self-care (01) ==
PROVIDERS: Emergency Provider Family Medicine; PCP Family Medicine
DX: S93.401A Sprain of unspecified ligament of right ankle, initial encounter (principal); S96.911A Strain of unspecified muscle and tendon at ankle and foot level, right foot, initial encounter; S83.8X2A Sprain of other specified parts of left knee, initial encounter; S76.102A Unspecified injury of left quadriceps muscle, fascia and tendon, initial encounter; F17.210 Nicotine dependence, cigarettes, uncomplicated; J44.9 Chronic obstructive pulmonary disease, unspecified; I10 Essential (primary) hypertension; E78.5 Hyperlipidemia, unspecified; W18.39XA Other fall on same level, initial encounter; Z11.52 Encounter for screening for COVID-19
CPT/HCPCS: 73562; 73610; 87426; 99284

== ENCOUNTER → 2023-03-13 08:43 | Outpatient (BNVA) | payer MEDICARE, OTHER, SELFPAY | PROVIDERS: PCP Family Medicine; Visit Provider Student in an Organized Health Care Education/Training Program | DX: S76.102D Unspecified injury of left quadriceps muscle, fascia and tendon, subsequent encounter; W19.XXXD Unspecified fall, subsequent encounter; R29.6 Repeated falls | CPT/HCPCS: 99024 ==

== ENCOUNTER 2023-03-19 11:12 | Outpatient (CLI) | payer MEDICARE, OTHER, SELFPAY ==
--- NOTE | 2023-03-19 11:45 | US_ITS ---
WS: [id number] ULTRASOUND SOFT TISSUES inferior LEFT thigh. HISTORY: Postoperative repair quadriceps tendon tear. COMPARISON: LEFT knee MRI 01/03/2023 TECHNIQUE: 2-D and color Doppler imaging is submitted. There is a large complex fluid collection in the LEFT suprapatellar region. There is a mixture of flu id and edema. Hypoechoic quadriceps tendon is not identified. A normal quadriceps tendon is not ident ified. This complex collection extends over a length of greater than 6 cm. IMPRESSION: Complex fluid collection in the LEFT suprapatellar region. A normal quadriceps tendon is not identifi ed. Findings are suspicious for a quadriceps tendon tear. Reevaluation by orthopedics. Additional MRI imaging may be necessary.
== END 2023-03-19 11:13 | disposition home or self-care (01) ==
PROVIDERS: PCP Family Medicine; Visit Provider Student in an Organized Health Care Education/Training Program
DX: Z98.890 Other specified postprocedural states (principal); S76.102A Unspecified injury of left quadriceps muscle, fascia and tendon, initial encounter; S83.8X2A Sprain of other specified parts of left knee, initial encounter; X58.XXXA Exposure to other specified factors, initial encounter
CPT/HCPCS: 76882

== ENCOUNTER → 2023-03-22 14:00 | Outpatient (BNVA) | payer MEDICARE, OTHER, SELFPAY | PROVIDERS: PCP Family Medicine; Visit Provider Student in an Organized Health Care Education/Training Program | DX: S76.102A Unspecified injury of left quadriceps muscle, fascia and tendon, initial encounter (principal); X58.XXXA Exposure to other specified factors, initial encounter | CPT/HCPCS: 99024; 99214 ==

== ENCOUNTER 2023-03-23 15:24 | Inpatient (IN) | payer MEDICARE, OTHER, SELFPAY ==
[2023-03-23] VITALS (18 sets, daily range): BP systolic 101–165; BP diastolic 55–82; PULSE 59–88; RESP 13–20; TEMP 36.1–36.7; O2SAT 91–97; BMI 35.9
--- NOTE | 2023-03-23 | XR_ITS ---
WS: [id number] Left femur and thigh, C-arm fluoroscopy views, 03/23/2023 Clinical Data: ex fix, or pic Comparison: None. Findings: Dr. Zhang placed external skeletal fixation devices in the left femur. Impression: Insertion of external skeletal fixation devices in the left femur.
[2023-03-23 11:44] LABS: Basophils % 0.1 %; Eosinophils # 0.1 10^3/uL (0.0-0.8); Eosinophils % 1.3 %; Hematocrit 40.7 % (37-53); Lymphocytes # 1.2 10^3/uL (0.8-4.8); Lymphocytes % 17.1 %; Mean Corpuscular HGB Conc 32.4 g/dL (30-55); Mean Corpuscular Hemoglobin 29.8 pg (27-33); Mean Corpuscular Volume 91.9 fl (82-101); Mean Platelet Volume 9.3 fL (7.4-10.4); Monocytes # 0.5 10^3/uL (0.2-0.9); Monocytes % 6.5 %; Neutrophils # 5.13 10^3/uL (1.8-7.7); Neutrophils % 74.6 %; Nucleated Red Blood Cells % 0 %; Platelet Count 230 10^3/cmm (157-399); Red Blood Count 4.43 10^6/uL (3.85-5.65); Red Cell Distribution Width 14.8 % (12.1-15.1); White Blood Count 6.89 10^3/uL (3.29-11.43)
[2023-03-23] MEDS: acetaminophen 1,000 MG/100 ML PIGGYBACK 400 MG IV (11:55)
[2023-03-23] MEDS: ketorolac 30 mg/mL INJ IVP (11:56)
[2023-03-23 12:07] LABS: Blood Urea Nitrogen 13 mg/dL (8-23); Calcium 9.5 mg/dL (8.5-10.5); Carbon Dioxide 28 mmol/L (22-29); Chloride 101 mmol/L (98-107); Creatinine Clr Calc Pharmacy 105.0981; Glomerular Filtration Rate 83.4 mL/min (90-130); Glucose 104 mg/dL (65-115); Osmolality Calculated 290 mOsm/kg (285-295); Sodium 140 mmol/L (136-145)
[2023-03-23 12:09] LABS: Anion Gap 15.5 (5-19); Potassium 4.5 mmol/L (3.5-5.1)
--- NOTE | 2023-03-23 12:10 | ANES.PREANE2 ---
Pre-Anesthetic Assessment Height/Weight: Height 1.85 m Weight 123.377 kg Temp Pulse Resp BP Pulse Ox O2 Del Method 97.7 F 59 L 18 101/55 94 Room Air 03/23/23 12:02 03/23/23 12:02 03/23/23 12:02 03/23/23 12:02 03/23/23 12:02 03/23/23 12:02 Preop Diagnosis: Left quadricep tendon tear Operation Date: 03/23/23 12:20 Proposed Procedures s External Fixator Lower Extremity: Left Knee Spanning Exfix(Left) - Dylan Leatha, DO p Tendon Repair Quadriceps(Left) - Dylan Lander, DO Familial anesthetic complications: None Was Beta Christian taken within 24 hours: N/A Was Clonidine taken within 24 hours: N/A Last intake: > 8hrs Social Tobacco and No alcohol Exam alert, oriented x 3, clear to auscultation bilaterally and regular rate & rhythm Airway Mallampati: Class II Dentition: full Pulmonary Chronic Obstructive Pulmonary Disease and Sleep Apnea CV/HEM Congestive Heart Failure and Hypertension GI Gastroesophageal Reflux Disease crohn's Anesthetic Plan ASA status: 3 Anesthesia: General Risk of > 500 ml blood loss (7ml/kg in children): No Medications/Allergies Home Medications Medication Instructions Recorded Confirmed Last Taken Type lidocaine 5 % topical patch 1 patch topical DAILY 03/29/20 03/22/23 02/22/23 History lisinopril 40 mg tablet 20 mg PO DAILY 03/29/20 03/23/23 03/23/23 03:30 History mesalamine 500 mg capsule,extended 3,600 mg PO ONCE 03/29/20 03/22/23 03/23/23 03:30 History release metoprolol succinate 50 mg capsule 25 mg PO BID 03/29/20 03/22/23 03/23/23 History sprinkle, ext. release 24 hr omeprazole 40 mg capsule,delayed 40 mg PO DAILY 03/29/20 03/22/23 03/23/23 History release ropinirole 2 mg tablet 2 mg PO DAILY 03/29/20 03/22/23 03/22/23 History furosemide 20 mg tablet (Lasix) 20 mg PO DAILY 30 days #30 tabs 06/28/20 03/22/23 03/23/23 03:30 Rx levalbuterol tartrate 45 2 inh inhalation Q6H PRN shortness 06/28/20 03/23/23 01/29/23 History mcg/actuation aerosol inhaler of breath or wheezing (Xopenex HFA) diphenhydramine HCl 25 mg capsule 25 mg PO DAILY PRN Allergy Symptoms 09/27/20 03/23/23 03/22/23 History (Allergy (diphenhydramine)) gabapentin 600 mg tablet 1,800 mg PO BID 12/19/22 03/22/23 03/23/23 03:30 History tiotropium 2.5 mcg-olodaterol 2.5 2 puff inhalation DAILY #4 grams 01/10/23 03/23/23 02/22/23 Rx mcg/actuation mist for inhalation (Stiolto Respimat) trazodone 100 mg tablet 100 mg PO DAILY #30 tabs 01/22/23 03/22/23 03/22/23 Rx bisacodyl 10 mg rectal suppository 10 mg [place] DAILY PRN 03/13/23 03/22/23 Unknown History (Dulcolax (bisacodyl)) magnesium hydroxide 400 mg/5 mL 5 ml PO DAILY PRN Constipation 03/13/23 03/23/23 Unknown History oral suspension (Milk of Magnesia) morphine 15 mg immediate release 15 mg PO BID PRN Pain 30 days #60 03/13/23 03/22/23 03/22/23 Rx tablet tabs morphine 30 mg capsule,extended 30 mg PO BID 30 days #60 caps 03/13/23 03/22/23 03/23/23 03:30 Rx release 24 hr multiphase Allergies Allergy/AdvReac Type Severity Reaction Status Date / Time varenicline [From Chantix] Allergy ALGY-Bliste Verified 03/23/23 11:25 r [facility] Anesthesia Medical History Cardiomegaly Chondromalacia of both patellae Chronic back pain COPD (chronic obstructive pulmonary disease) Crohn's disease GERD (gastroesophageal reflux disease) Histoplasmosis HTN (hypertension) Hyperlipidemia Hypoxia Lung nodule Efe syndrome Nicotine dependence Surgical History H/O hernia repair H/O shoulder surgery History of ear surgery Social History Smoking and tobacco/nicotine status: current every day tobacco/nicotine user cigarettes Packs smoked per day: 1 Years cigarettes smoked: 45 Quit status (tobacco/nicotine): considering quitting Second hand smoke exposure: Yes Alcohol intake: never Substance/Drug Use: never Lives independently: Yes Household members: spouse Marital status: service: Yes Current occupational status: retired Pets and animals: Yes Do you think of yourself as: Straight/Heterosexual Current gender identity: Male Data Anesthesia 03/23/23 11:38 03/23/23 11:38 Short CBC 03/23/23 Range/Units 11:38 WBC 6.89 (3.29-11.43) 10^3/uL Hgb 13.20 (11.27-16.99) g/dL Hct 40.7 (37-53) % MCV 91.9 (82-101) fl Plt Count 230 (157-399) 10^3/cmm Neut % (Auto) 74.6 % Neut # (Auto) 5.13 (1.8-7.7) 10^3/uL BMP 03/23/23 11:38 Sodium 140 Potassium 4.5 Chloride 101 Carbon Dioxide 28 BUN 13 Creatinine 0.9 Glucose 104 Calcium 9.5 Cardiac Studies: Sestamibi Stress Test (Cardiology) 08/02/20
--- NOTE | 2023-03-23 12:13 | W.PM.OPSUD ---
Surgery/Procedure H&P Update DATE OF PROCEDURE: March 23, 2023 DATE H&P PERFORMED: 03/22/23 H&P UPDATE INFORMATION: I have reviewed H&P completed within last 30 days, I have examined patient prior to procedure and No changes to prior documentation PREOP DIAGNOSIS: Left quadricep tendon tear PRIMARY INDICATION FOR PROCEDURE: Left quadricep tendon Retear s/p previous quad tendon repair PLANNED PROCEDURE: Operation Date: 03/23/23 12:20 Proposed Procedures s External Fixator Lower Extremity: Left Knee Spanning Exfix(Left) - Dylan Zhang DO p Tendon Repair Quadriceps(Left) - Dylan Zhang DO
[2023-03-23] MEDS: sodium chloride 0.9% 1,000 ML 30 ML IV (12:17)
[2023-03-23] MEDS: ceFAZolin 2,000 MG in sodium chloride 0.9% (plus) 50 ML 100 MG IV (12:17)
[2023-03-23] MEDS: ceFAZolin 1,000 MG in sodium chloride 0.9% (plus) 50 ML 100 MG IV (12:38)
[2023-03-23] MEDS: vancomycin 1,000 MG SDV 2000 MG XX (13:05)
[2023-03-23] MEDS: HYDROmorphone 1 mg/mL INJ 1 mL 0.5 MG IVP (15:34)
--- NOTE | 2023-03-23 15:41 | P.BOP_ITS ---
Date of Procedure: 03/23/2023 Surgeon: Dylan Zhang DO Mechanical Inspector(s): None Procedure(s) performed: Left quadricep tendon repair revision Left thigh hematoma evacuation Left knee spanning external fixator Findings of the procedure(s): Patient had quadricep tendon re-tear from previous repair as well as tearing of the muscle belly vastus lateralis with large collection hematoma, quadricep tendon repair went as planned with augmentation of synthetic mesh to help increase scar tissue formation, patient had Ex-Fix placed without any issues and will be nonweightbearing to the left lower extremity. Procedure went as planned and will be admitted postoperatively Estimated blood loss: 100 cc Specimen(s) removed: None Post-operative diagnosis: Left quadricep tendon tear
[2023-03-23] MEDS: oxyCODONE 5 mg IR Tab/Cap PO ×2 (16:16→21:19)
--- NOTE | 2023-03-23 16:59 | PM.PACU ---
PACU note Narrative: Patient seen and examined in PACU is recovering well pain is controlled with medications. Ex-Fix on in place dressings are clean dry and intact. Distally his foot is warm and well-perfused able to wiggle toes as well as plantarflex and dorsiflex ankle sensations intact light touch distally distal pulses palpable. We will be admitted to the floor postoperatively. Exam: awake Disposition: admitted
--- NOTE | 2023-03-23 17:00 | PM.OP ---
Operative Report Date of procedure: March 23, 2023 Pre-op diagnosis: Left quadricep tendon re-tear Implants: 2x #5 FiberWire Arthrex 1 sheet of UltraPro hernia mesh 15 cm x 15 cm Vancomycin powder Surgeon: Dylan Zhang DO Procedure: Preop Diagnosis ? Left quadricep tendon re-tear ? Post-op diagnosis: Left quadricep tendon re-tear with vastus lateralis muscle tear and large hematoma Procedure done: Left quadricep tendon repair Left thigh hematoma evacuation Left knee spanning external fixator placement Surgeon: Dylan Zhang DO Estimated blood loss: 100mL No tourniquet was used IV fluids: 1000 mL Complications: None Findings: See operative report narrative Condition: stable Disposition: same day Brief History: Patient is a 72-year-old male known to my practice having a left quadricep tendon repair performed on 01/31/2023. Patient overall has been progressing well postoperatively was seen week 2 as well as week 3. Unfortunately on duration between a week 3 to week 6 follow-up he had had numerous falls which caused a retear of patient's repair he did not have an intact extensor mechanism and ultrasound was performed confirming this. At this point time we talked about treatment options and given his failure of extensor mechanism and weakness would recommendLeft quadricep tendon repair revision as well as placement of external fixator. Patient understands the ins and outs procedure risk benefits complication alternatives of surgery through shared decision-making elects proceed with surgical intervention. All questions answered. Procedure: Patient seen eval in the preoperative holding area.? Consent was reviewed and signed with patient.? Correct extremity was then marked.? Patient was then seen eval by anesthesia once cleared for surgery was taken back to the operative suite he is transported the OR table all bony prominences well-padded patient prepped secured to bed he is placed in supine position a bump was placed under the ipsilateral hip.? He then underwent anesthesia per the anesthesia department.? No tourniquet was used.? The left lower extremity was then prepped and draped in standard orthopedic fashion.? Final timeout performed.? Patient received appropriate preoperative antibiotics. Previous standard anterior midline incision was made to the left knee sharp scalpel incision through skin and subcutaneous tissue created full-thickness skin flaps to lie came down directly over the quadricep tendon patient was found to have a retear of the quadricep tendon repair site. Loose suture was found and subsequently removed. Of note I evacuated patient's seroma and hematoma at the incision site. At the evidence of the quadricep tendon tear. I did note when mobilizing full-thickness skin flaps and dissecting around the entire quad tendon patient proximally in the anterior and lateral aspect of the thigh over the vastus lateralis was found to have tearing throughout the muscle belly consistent with a vastus lateralis muscle tear with a large hematoma which was found to being (16 cm x 8 cm x 4 cm ) I subsequently evacuated the entire hematoma in the quadricep tendon retailer. I utilized 3 L normal saline to thoroughly irrigate and debride all nonhealing fibrous tissue. At this point in time I then subsequently prepared for a quadricep tendon repair. I then thoroughly irrigated the wound bed and the knee joint this was all suctioned free.? Once this was performed I utilized sharp scalpel excision as well as curettes and rongeur to prepare the wound bed for healing of the superior pole of the patella .? The tissue was mobilized anteriorly off of the patella to have appropriate full-thickness bed for tendon repair.? This tissue was then debrided to healthy tissue as there was significant tendinopathy and diseased tendon at the distal aspects of the tendon as it inserts on the patella.? I then at this point in time utilized sharp scalpel as well as curettage as well as rongeur to debride the superior pole patella for preparation of quadricep tendon repair.? I then utilized the knife to debride the diseased tendon proximally to healthy bleeding tendon tissue.? Once I was satisfied with my debridement preparation for repair I then took Arthrex's #5 FiberWire placed this in standard whipstitch fashion up and down the tendon with 2 strands on the 1 side of the tendon and with additional 2 strands on the other side of the tendon the suture ends were then subsequently cut and at this point time is ready for placement of bone tunnels I then keeping the finger underneath the patella drilled a midline tunnel as well as a medial lateral tunnel.? I loaded my 2 midline sutures and my clinic office assistant helped and passing knees with a Jitendra suture passer and shuttled the sutures through and then subsequently shuttled my medial and lateral individual's through bone tunnels utilizing Maciel suture passer.? Once this was then performed I then placed a bump underneath the ankle and my clinic office assistant held this leg position and I subsequently tied over the bone tunnels and had excellent fixation and opposition of the quadricep tendon repair on the superior pole patella.? Given this was a revision and patient does have poor tendon quality after already 1 repair. I subsequently elected to utilize ultra pro synthetic mesh to help augment my fixation. I cut this into 3 separate strips leaving this through the tendon on the medial and lateral aspects of the retinaculum to reinforce this laying this day and anteriorly on top of the tendon proximally as well as leaving this through the superior pole tendinous tissue at the midline of my repair. I then utilizing PDS suture and running whipstitch fashion adhered and sutured the mesh against the tendon to reinforce my repair. This had excellent fixation and the repair was stressed to 20 degrees and there was no gapping at the repair site. The small layer of good quadricep tendon tissue was then laid back over the repair and sutured on the spine itself in pants over vest fashion. ? I then kept the knee in extension.? Thoroughly irrigated the wound bed.? Placed vancomycin powder within the incision site and then subsequently placed and closed the incision in layered fashion with running strata fix suture in the deep subcutaneous and superficial subcutaneous layer and then utilized rhonda for the incision site. Incision was then covered with mir dressing. Once my incision was closed and dressing applied I then placed my spanning external fixator. I kept the knee in extension and utilize fluoroscopic imaging for this. I placed a standard knee spanning external fixator. I placed 2 200 mm pins into the femur with appropriate spread just proximal on the anterior lateral aspect of the femur and then subsequently placed my 2 tibial pins of 180 mm in length on the anterior medial face of the tibia at the midshaft. Once these were found to be bicortical in appropriate position with fluoroscopic imaging I then subsequently cleaned and dressed each of these in appropriate manner to keep this all dressed in sterile conditions. I then subsequently placed my green degree and couplers both on the femur and tibial pins once this was done I then subsequently selected for total clamps and placed 11 mm x 45 mm and 11 mm x 400 mm crossing bars while maintaining the knee with goals of not keeping this hyperextended maintaining extension for my repair subsequently locked this down in appropriate position for the knee to protect my repair of the quadricep tendon. I then to increase my construct stability placed a crossing bar with 2 other couplers. This completed my spanning knee external fixator. All dressings were taken down. Patient was then awake from anesthesia and taken to PACU in stable condition. Disposition: Patient taken back in stable condition recovering well. Given patient's retear of the quad and external fixator as well as patient's age and restrictions will have would recommend hospitalization with plan for rehab placement. Patient will be admitted to the floor postoperatively internal medicine consulted DVT prophylaxis pain control as well as postoperative antibiotics. Patient understands agrees to current plan. Questions answered. We will be nonweightbearing to the operative extremity.
[2023-03-23 17:42] LABS: Glucose Point of Care 147 mg/dL (70-110)
--- NOTE | 2023-03-23 17:50 | ANE.PACU2 ---
Inpatient post-anesthesia follow up: Airway intact: Yes Vital signs: Temperature 97.6 F Pulse Rate 85 Respiratory Rate 17 Blood Pressure 131/76 Pulse Oximetry 97 Oxygen Delivery Me thod Nasal Cannula Oxygen Flow Rate 3 Fraction of Inspir ed Oxygen Hydration adequate: Yes Nausea and vomiting: No Pain level: 1 Mental status: Baseline
[2023-03-23] MEDS: chlorhexidine gluconate 0.12% Btl 473 mL 30 ML MUCOUS MEM ×2 (18:05→20:23)
[2023-03-23] MEDS: docusate sodium 100 mg Capsule PO (18:05)
[2023-03-23] MEDS: iron polysaccharide complex 150 mg Capsule PO (18:05)
[2023-03-23] MEDS: calcium carb-vit d 600mg/400unit 1 Tablet 1 EACH PO (18:05)
[2023-03-23] MEDS: lactated ringers 1,000 ML 75 ML IV (18:07)
[2023-03-23] MEDS: insulin lispro 100 unit/1 mL SUBCUT (18:24)
[2023-03-23] MEDS: acetaminophen 500 mg Tablet 1000 MG PO (20:23)
[2023-03-23] MEDS: metoprolol succinate ER (24 HR) 25 mg Tablet PO (20:23)
[2023-03-23 20:54] LABS: Glucose Point of Care 176 mg/dL (70-110)
[2023-03-23] MEDS: ceFAZolin 3,000 MG in sodium chloride 0.9% (100 ml) 100 ML 200 MG IV (21:12)
[2023-03-23] MEDS: ketorolac 30 mg/mL INJ 15 MG IVP (21:18)
[2023-03-24] VITALS (9 sets, daily range): BP systolic 118–162; BP diastolic 68–79; PULSE 63–75; RESP 14–19; TEMP 36.4–37; O2SAT 92–97
[2023-03-24] MEDS: oxyCODONE 5 mg IR Tab/Cap PO ×2 (03:55→08:54)
[2023-03-24] MEDS: acetaminophen 500 mg Tablet 1000 MG PO ×3 (03:56→20:06)
[2023-03-24 04:35] LABS: Eosinophils % 0.2 %; Lymphocytes # 0.7 10^3/uL (0.8-4.8); Lymphocytes % 10.1 %; Mean Corpuscular HGB Conc 31.7 g/dL (30-55); Mean Corpuscular Hemoglobin 29.6 pg (27-33); Mean Corpuscular Volume 93.3 fl (82-101); Mean Platelet Volume 8.8 fL (7.4-10.4); Monocytes # 0.3 10^3/uL (0.2-0.9); Neutrophils # 5.44 10^3/uL (1.8-7.7); Neutrophils % 84.2 %; Nucleated Red Blood Cells % 0 %; Platelet Count 190 10^3/cmm (157-399); Red Blood Count 3.75 10^6/uL (3.85-5.65); Red Cell Distribution Width 14.6 % (12.1-15.1); White Blood Count 6.45 10^3/uL (3.29-11.43)
[2023-03-24 05:01] LABS: Anion Gap 12.7 (5-19); Blood Urea Nitrogen 16 mg/dL (8-23); Calcium 8.6 mg/dL (8.5-10.5); Carbon Dioxide 26 mmol/L (22-29); Chloride 102 mmol/L (98-107); Glomerular Filtration Rate 59.9 mL/min (90-130); Glucose 123 mg/dL (65-115); Osmolality Calculated 285 mOsm/kg (285-295); Potassium 4.7 mmol/L (3.5-5.1); Sodium 136 mmol/L (136-145)
[2023-03-24] MEDS: ceFAZolin 3,000 MG in sodium chloride 0.9% (100 ml) 100 ML 200 MG IV (05:04)
[2023-03-24 05:05] LABS: Magnesium 1.7 mg/dL (1.7-2.3)
[2023-03-24] MEDS: HYDROmorphone 1 mg/mL INJ 1 mL IVP (05:08)
[2023-03-24 06:41] LABS: Glucose Point of Care 129 mg/dL (70-110)
--- NOTE | 2023-03-24 08:30 | PM.PN ---
Subjective Subjective: Patient seen and examined this morning. Pain controlled. Will work with PT. Nonweightbearing left lower extremity. Ex-Fix and dressings clean dry and intact.Patient unstable on transfer and will likely need rehab facility placement given his restrictions and Ex-Fix. Vitals/I&O/Wt Last Vital Signs Temp 97.6 F 03/25/23 11:46 Pulse 62 03/25/23 11:46 Resp 18 03/25/23 11:46 BP 173/83 03/25/23 11:46 Pulse Ox 93 03/25/23 11:46 O2 Del Method Room Air 03/25/23 11:46 O2 Flow Rate 3 03/24/23 08:53 03/24/23 03/25/23 03/25/23 22:59 06:59 14:59 Intake Total 1100 / 1340 120 / 120 Output Total 325 / 325 200 / 525 Balance 775 / 1015 -200 / 815 120 / 120 Physical Exam Narrative: Patient seen and examined, dressings clean dry and intact Ex-Fix on in place clean dry and intact. Compartments are soft compressible. No saturation on dressing site. Patient is able to wiggle toes plantarflex and dorsiflex ankle toes warm well perfused sensations intact light touch distally distal pulses palpable. Data 03/25/23 05:49 03/25/23 05:49 A&P Assessment and plan (1) Injury of left quadriceps femoris muscle: (2) Smoker: Plan Postop day 1 status post left quadricep tendon repair revision hematoma evacuation with application of external fixator Pain control Continue DVT prophylaxis Nonweightbearing operative extremity Maintain Ex-Fix and dressing change as needed Continue postoperative antibiotics for infection prophylaxis given revision surgery Internal medicine on board and appreciate medical management Ice and elevate as needed PT/OT Plan is to discharge him [facility] likely next weekAs he will need placement for assistance with mobilization for safety given his unsteadiness and inability for transfers Attestations Medical Necessity Statement*: Status post revision left quadricep tendon repair, hematoma evacuation and Ex-Fix placement, requiring ongoing care postoperatively for pain control and therapy Coding Level of Care Code Acute Code for Chg Fwd Diagnoses Injury of left quadriceps femoris muscle S76.102A Smoker F17.200 Time Spent (min) 25
[2023-03-24] MEDS: docusate sodium 100 mg Capsule PO ×2 (08:54→17:29)
[2023-03-24] MEDS: calcium carb-vit d 600mg/400unit 1 Tablet 1 EACH PO ×2 (08:54→17:29)
[2023-03-24] MEDS: multivitamin therapeutic Tablet 1 TAB PO (08:54)
[2023-03-24] MEDS: metoprolol succinate ER (24 HR) 25 mg Tablet PO ×2 (08:54→20:06)
[2023-03-24] MEDS: iron polysaccharide complex 150 mg Capsule PO ×2 (08:54→17:29)
[2023-03-24] MEDS: enoxaparin 30 mg/0.3 mL Syringe SUBCUT (08:55)
--- NOTE | 2023-03-24 11:38 | P.CONIM_ITS ---
Providers/Reason For Consult Consulting Physician/Specialty*: Hospitalist Reason for Consult*: Postoperative management Attending Physician: Dylan Zhang DO Primary Care Provider: Laureano Abraham MD History of Present Illness History of Present Illness Karel oHran is a 72 year old male who has history of Crohn's takes mesalamine and chronic opioids, hospital service was was consulted for postoperative management At the time of my evaluation patient is not complaining of any pain, there is plan to find appropriate m[facility]p for him likely next week Patient is stating that he would like to go back to [facility] I have asked pharmacy to verify the dose of mesalamine so we could restart in I have resumed his chronic opioid morphine Patient endorsing of pain in his knee at this point Patient endorsing use of 3 L of oxygen at nighttime only Review of Systems Const: Denies: fever(s) Eyes: Denies: change in vision ENMT: Denies: throat pain Card: Denies: chest pain Resp: Denies: dyspnea GI: Denies: constipation : Denies: urinary frequency Musc: Denies: neck pain Medications/Allergies Home Medications Medication Instructions Recorded Confirmed Last Taken Type lidocaine 5 % topical patch 1 patch topical DAILY 03/29/20 03/23/23 02/22/23 History lisinopril 40 mg tablet 20 mg PO DAILY 03/29/20 03/23/23 03/23/23 03:30 History mesalamine 500 mg capsule,extended 3,600 mg PO ONCE 03/29/20 03/23/23 03/23/23 03:30 History release metoprolol succinate 50 mg capsule 25 mg PO BID 03/29/20 03/23/23 03/23/23 History sprinkle, ext. release 24 hr omeprazole 40 mg capsule,delayed 40 mg PO DAILY 03/29/20 03/23/23 03/23/23 History release ropinirole 2 mg tablet 2 mg PO DAILY 03/29/20 03/23/23 03/22/23 History furosemide 20 mg tablet (Lasix) 20 mg PO DAILY 30 days #30 tabs 06/28/20 03/23/23 03/23/23 03:30 Rx levalbuterol tartrate 45 2 inh inhalation Q6H PRN shortness 06/28/20 03/23/23 01/29/23 History mcg/actuation aerosol inhaler of breath or wheezing (Xopenex HFA) diphenhydramine HCl 25 mg capsule 25 mg PO DAILY PRN Allergy Symptoms 09/27/20 1 03/22/23 History (Allergy (diphenhydramine)) gabapentin 600 mg tablet 1,800 mg PO BID 12/19/22 03/23/23 03/23/23 03:30 History tiotropium 2.5 mcg-olodaterol 2.5 2 puff inhalation DAILY #4 grams 01/10/23 03/23/23 02/22/23 Rx mcg/actuation mist for inhalation (Stiolto Respimat) trazodone 100 mg tablet 100 mg PO DAILY #30 tabs 01/22/23 03/23/23 03/22/23 Rx bisacodyl 10 mg rectal suppository 10 mg MS DAILY PRN Constipation 03/13/23 03/23/23 Unknown History (Dulcolax (bisacodyl)) magnesium hydroxide 400 mg/5 mL 5 ml PO DAILY PRN Constipation 03/13/23 03/23/23 Unknown History oral suspension (Milk of Magnesia) morphine 15 mg immediate release 15 mg PO BID PRN Pain 30 days #60 03/13/23 03/23/23 03/22/23 Rx tablet tabs morphine 30 mg capsule,extended 30 mg PO BID 30 days #60 caps 03/13/23 03/23/23 03/23/23 03:30 Rx release 24 hr multiphase Allergies Allergy/AdvReac Type Severity Reaction Status Date / Time varenicline [From Chantix] Allergy ALGY-Bliste Verified 03/23/23 11:25 r Current Medications Generic Name Dose Route Start Last Admin Trade Name Freq PRN Reason Stop Dose Admin Oxycodone HCl 5 - 10 mg 03/23/23 16:05 03/23/23 16:16 Oxycodone 5 Mg Ir Tab/Cap PO 10 mg Q4H PRN Administration Moderate To Severe Pain 1st PFSH Acute PFSH: Medical History Cardiomegaly Chondromalacia of both patellae Chronic back pain COPD (chronic obstructive pulmonary disease) Crohn's disease GERD (gastroesophageal reflux disease) Histoplasmosis HTN (hypertension) Hyperlipidemia Hypoxia Lung nodule Efe syndrome Nicotine dependence Surgical History H/O hernia repair H/O shoulder surgery History of ear surgery Social History Smoking and tobacco/nicotine status: current every day tobacco/nicotine user cigarettes Packs smoked per day: 1 Years cigarettes smoked: 45 Quit status (tobacco/nicotine): considering quitting Second hand smoke exposure: Yes Alcohol intake: never Substance/Drug Use: never Lives independently: Yes Household members: spouse Marital status: service: Yes Current occupational status: retired Pets and animals: Yes Do you think of yourself as: Straight/Heterosexual Current gender identity: Male Vitals/I&O/Wt Last Vital Signs Temp 97.9 F 03/23/23 16:05 Pulse 88 03/23/23 16:25 Resp 16 03/23/23 16:25 BP 138/76 03/23/23 16:25 Pulse Ox 93 03/23/23 16:25 O2 Del Method Nasal Cannula 03/23/23 16:25 O2 Flow Rate 6 03/23/23 15:21 03/23/23 03/23/23 03/23/23 06:59 14:59 22:59 Intake Total 1100 / 1100 330 / 1430 Output Total 100 / 100 Balance 1100 / 1100 230 / 1330 Weight last 48 hrs Weight 123.377 kg Physical Exam Narrative: Awake and alert Abdomen distended, soft Lower extremity left with external fixator SCDs in place S1, S2 Currently on room air Pleasant and cooperative GCS 15 Nonfocal neuro exam Data 03/24/23 04:20 03/24/23 04:20 A&P Assessment and plan (1) Smoker: (2) Injury of left quadriceps femoris muscle: (3) Injury of meniscus of left knee: (4) Aortic root aneurysm: (5) Chondromalacia of both patellae: (6) Nicotine addiction: (7) Heart failure with preserved ejection fraction: (8) Nocturnal hypoxia: (9) Emphysema lung: (10) Restrictive lung disease: (11) Obstructive sleep apnea: Plan Postop day 1 status post left quadricep tendon repair revision hematoma evacuation with application of external fixator We will consult pharmacy to verify the dose of mesalamine and continue today He has been taking morphine on daily basis which I will resume today and discontinue oxycodone Continue DVT prophylaxis Patient uses 3 L of oxygen only at nighttime Currently on DuoNeb Doing well on room air Plan is to discharge him to [facility] likely next week No active diarrhea No active flare of Crohn's disease noted Consult Attestations Medical Necessity Statement: As per orthopedics Diagnoses Smoker F17.200 Injury of left quadriceps femoris muscle S76.102A Injury of meniscus of left knee S83.8X2A Aortic root aneurysm I71.21 Chondromalacia of both patellae M22.41; M22.42 Nicotine addiction F17.200 Heart failure with preserved ejection fraction I50.30 Nocturnal hypoxia G47.34 Emphysema lung J43.9 Restrictive lung disease J98.4 Obstructive sleep apnea G47.33
[2023-03-24] MEDS: morphine IR 15 mg Tablet PO (14:12)
[2023-03-24] MEDS: ceFAZolin 3,000 MG in sodium chloride 0.9% (100 ml) 100 ML 100 MG IV (14:13)
[2023-03-24] MEDS: ketorolac 30 mg/mL INJ 15 MG IVP (14:21)
[2023-03-24] MEDS: acetaminophen 500 mg Tablet PO (14:42)
[2023-03-24] MEDS: HYDROmorphone 1 mg/mL INJ 1 mL 0.4 MG IVP (15:11)
[2023-03-24] MEDS: gabapentin 300 mg Capsule 600 MG PO (17:29)
[2023-03-24] MEDS: morphine ER (12 HR) 30 mg tablet PO (17:29)
[2023-03-24] MEDS: chlorhexidine gluconate 0.12% Btl 473 mL 30 ML MUCOUS MEM (20:07)
[2023-03-25] VITALS (10 sets, daily range): BP systolic 107–174; BP diastolic 76–83; PULSE 60–67; RESP 16–18; TEMP 36.4–36.9; O2SAT 90–97
[2023-03-25] MEDS: ketorolac 30 mg/mL INJ 15 MG IVP ×2 (00:05→08:48)
[2023-03-25] MEDS: morphine IR 15 mg Tablet PO ×2 (02:02→17:27)
[2023-03-25] MEDS: acetaminophen 500 mg Tablet 1000 MG PO ×3 (04:50→21:33)
[2023-03-25 06:18] LABS: Basophils % 0.2 %; Eosinophils # 0.1 10^3/uL (0.0-0.8); Eosinophils % 1.3 %; Hematocrit 35.6 % (37-53); Lymphocytes # 0.9 10^3/uL (0.8-4.8); Lymphocytes % 14.2 %; Mean Corpuscular HGB Conc 31.7 g/dL (30-55); Mean Corpuscular Hemoglobin 29.5 pg (27-33); Mean Platelet Volume 9.4 fL (7.4-10.4); Monocytes # 0.4 10^3/uL (0.2-0.9); Monocytes % 6.1 %; Neutrophils # 4.94 10^3/uL (1.8-7.7); Neutrophils % 77.7 %; Nucleated Red Blood Cells % 0 %; Platelet Count 184 10^3/cmm (157-399); Red Blood Count 3.83 10^6/uL (3.85-5.65); White Blood Count 6.35 10^3/uL (3.29-11.43)
[2023-03-25 06:38] LABS: Anion Gap 12.1 (5-19); Blood Urea Nitrogen 14 mg/dL (8-23); Calcium 8.9 mg/dL (8.5-10.5); Carbon Dioxide 27 mmol/L (22-29); Chloride 104 mmol/L (98-107); Glomerular Filtration Rate 73.9 mL/min (90-130); Glucose 95 mg/dL (65-115); Osmolality Calculated 288 mOsm/kg (285-295); Potassium 4.1 mmol/L (3.5-5.1); Sodium 139 mmol/L (136-145)
[2023-03-25] MEDS: docusate sodium 100 mg Capsule PO (08:19)
[2023-03-25] MEDS: gabapentin 300 mg Capsule 600 MG PO ×2 (08:19→17:28)
[2023-03-25] MEDS: lisinopril 20 mg Tablet PO (08:19)
[2023-03-25] MEDS: enoxaparin 30 mg/0.3 mL Syringe SUBCUT (08:19)
[2023-03-25] MEDS: multivitamin therapeutic Tablet 1 TAB PO (08:19)
[2023-03-25] MEDS: calcium carb-vit d 600mg/400unit 1 Tablet 1 EACH PO ×2 (08:19→17:28)
[2023-03-25] MEDS: iron polysaccharide complex 150 mg Capsule PO (08:19)
[2023-03-25] MEDS: FUROsemide 20 mg Tablet PO (08:19)
[2023-03-25] MEDS: morphine ER (12 HR) 30 mg tablet PO ×2 (08:19→17:28)
[2023-03-25] MEDS: chlorhexidine gluconate 0.12% Btl 473 mL 30 ML MUCOUS MEM ×4 (08:20→21:34)
[2023-03-25] MEDS: metoprolol succinate ER (24 HR) 25 mg Tablet PO ×2 (08:22→21:33)
[2023-03-25] MEDS: TRAMadol 50 mg Tablet PO (08:55)
--- NOTE | 2023-03-25 09:53 | PC.OT ---
PT REFUSED D/T PAIN; PAIN MEDS JUST GIVEN; OT CAME BACK 2ND TIME AFTER 45MIN AND PAIN MEDS EFFECTIVE; PT REFUSED AGAIN AND ASKED TO TRY LATER WHEN IN LESS PAIN. WILL TRY AGAIN TOMORROW 03/26/23.
--- NOTE | 2023-03-25 13:17 | PM.PN ---
Subjective Subjective: Patient seen and examined this afternoon he has had some bouts with pain sounds like some shooting and cramping up by his quad think this is related to some muscle spasming we will add on Robaxin as well he has an appropriate pain regimen otherwise. We will have him work with the nursing staff and therapy hopefully today just for sitting up at bedside or in a chair, he should continue to maintain nonweightbearing status. Plan for hopefully discharging tomorrow if possible to a rehab facility. Vitals/I&O/Wt Last Vital Signs Temp 97.6 F 03/25/23 11:46 Pulse 62 03/25/23 11:46 Resp 18 03/25/23 11:46 BP 173/83 03/25/23 11:46 Pulse Ox 93 03/25/23 11:46 O2 Del Method Room Air 03/25/23 11:46 O2 Flow Rate 3 03/24/23 08:53 03/24/23 03/25/23 03/25/23 22:59 06:59 14:59 Intake Total 1100 / 1340 120 / 120 Output Total 325 / 325 200 / 525 Balance 775 / 1015 -200 / 815 120 / 120 Physical Exam Narrative: Patient seen and examined, dressings clean dry and intact Ex-Fix on in place mild bloody drainage noted at pin sites and on dressing but dried and intact. Compartments are soft compressible. No saturation on mir dressing, patient is able to wiggle toes plantarflex and dorsiflex ankle toes warm well perfused sensations intact light touch distally distal pulses palpable. Data 03/25/23 05:49 03/25/23 05:49 A&P Assessment and plan (1) Injury of left quadriceps femoris muscle: (2) Smoker: Plan Postop day 2 status post left quadricep tendon repair revision, hematoma evacuation with application of external fixator Pain control-added on Robaxin for muscle cramping Continue DVT prophylaxis Nonweightbearing operative extremity Maintain Ex-Fix and dressing change as needed Continue postoperative antibiotics for infection prophylaxis given revision surgery Internal medicine on board and appreciate medical management Ice and elevate as needed PT/OT Plan is to discharge him to [facility] likely next week As he will need placement for assistance with mobilization for safety given his unsteadiness and inability for transfers Attestations Medical Necessity Statement*: Status post revision left quadricep tendon repair, hematoma evacuation and Ex-Fix placement, requiring ongoing care postoperatively for pain control and therapy Coding Level of Care Code Acute Code for Chg Fwd Diagnoses Injury of left quadriceps femoris muscle S76.102A Smoker F17.200 Time Spent (min) 25
[2023-03-25] MEDS: ceFAZolin 3,000 MG in sodium chloride 0.9% (100 ml) 100 ML 200 MG IV ×2 (13:49→21:33)
[2023-03-25] MEDS: methocarbamol 500 mg Tablet PO ×2 (13:49→21:33)
--- NOTE | 2023-03-25 15:10 | PM.PN ---
Subjective Subjective: Having some pain in his Left LE. No other complaints today. Has been eating and drinking well. Medications: Reviewed: Yes Vitals/I&O/Wt Last Vital Signs Temp 97.6 F 03/25/23 11:46 Pulse 62 03/25/23 11:46 Resp 18 03/25/23 11:46 BP 173/83 03/25/23 11:46 Pulse Ox 93 03/25/23 11:46 O2 Del Method Room Air 03/25/23 11:46 O2 Flow Rate 3 03/24/23 08:53 03/25/23 03/25/23 03/25/23 06:59 14:59 22:59 Intake Total 340 / 340 Output Total 200 / 525 Balance -200 / 815 340 / 340 Physical Exam Narrative: General: Cooperative patient in no apparent distress. Well developed. HEENT: Normocephalic, Atraumatic. External ears normal. Nasal passages patent without drainage. MMM. Heart: RRR. Resp: LCTA. No respiratory distress, no use of accessory muscles. Abd: Soft, non-tender. Non-distended. Extremities: Ex Fix in place. Mild edema in the LLE. Skin: No rash or lesions on exposed areas. Neuro: No focal motor or sensory loss. Gait is normal. Data 03/25/23 05:49 03/25/23 05:49 A&P Assessment and plan (1) Smoker: (2) Injury of left quadriceps femoris muscle: (3) Injury of meniscus of left knee: (4) Aortic root aneurysm: (5) Chondromalacia of both patellae: (6) Nicotine addiction: (7) Heart failure with preserved ejection fraction: (8) Nocturnal hypoxia: (9) Emphysema lung: (10) Restrictive lung disease: (11) Obstructive sleep apnea: Plan 72 y/o M admitted for L quad tendon repair s/p day 2. Continue inpatient monitoring. Hgb is 11.3, stable. Pain has been well controlled. Continue current regimen. Chart reviewed for previous history of TIIDM. Not on medications and no previous history. Did have an episode of elevated glucose while in hospital, but no other issues. May discontinue Accuchecks and Insulin regimen. Continue IV Abx per ortho. VTE PPx with Lovenox. Recheck AM labs. Continue Crohns treatment. Plan for discharge later this week per ortho. Code Status: Full IVF: None DVT PPx: Lovenox GI PPx: protonix ABx: Cefazolin Diet: GI soft Discharge plan: SNF when appropriate. Attestations Medical Necessity Statement*: Per ortho Coding Level of Care Code Acute Code for Chg Fwd Straight Forward/Low MDM includes number and complexity of problems actively addressed during encounter, amount and/or complexity of data reviewed/ordered and described risk of complication, morbidity or mortality of management as documented Diagnoses Smoker F17.200 Injury of left quadriceps femoris muscle S76.102A Injury of meniscus of left knee S83.8X2A Aortic root aneurysm I71.21 Chondromalacia of both patellae M22.41; M22.42 Nicotine addiction F17.200 Heart failure with preserved ejection fraction I50.30 Nocturnal hypoxia G47.34 Emphysema lung J43.9 Restrictive lung disease J98.4 Obstructive sleep apnea G47.33
[2023-03-25] MEDS: pantoprazole DR 40 mg Tablet PO (15:31)
[2023-03-26] VITALS (7 sets, daily range): BP systolic 144–171; BP diastolic 73–83; PULSE 67–75; RESP 16–18; TEMP 36.4–36.9; O2SAT 90–94
[2023-03-26] MEDS: TRAMadol 50 mg Tablet PO ×3 (01:09→14:54)
[2023-03-26 04:47] LABS: Basophils % 0.1 %; Eosinophils # 0.1 10^3/uL (0.0-0.8); Eosinophils % 1.5 %; Hematocrit 36.1 % (37-53); Lymphocytes # 0.7 10^3/uL (0.8-4.8); Mean Corpuscular HGB Conc 30.7 g/dL (30-55); Mean Corpuscular Hemoglobin 29.2 pg (27-33); Mean Platelet Volume 9.8 fL (7.4-10.4); Monocytes # 0.6 10^3/uL (0.2-0.9); Monocytes % 6.9 %; Neutrophils # 6.73 10^3/uL (1.8-7.7); Nucleated Red Blood Cells % 0 %; Platelet Count 251 10^3/cmm (157-399); Red Cell Distribution Width 14.9 % (12.1-15.1); White Blood Count 8.21 10^3/uL (3.29-11.43)
[2023-03-26 05:07] LABS: Blood Urea Nitrogen 14 mg/dL (8-23); Calcium 8.8 mg/dL (8.5-10.5); Carbon Dioxide 26 mmol/L (22-29); Chloride 105 mmol/L (98-107); Creatinine Clr Calc Pharmacy 105.0981; Glomerular Filtration Rate 83.4 mL/min (90-130); Glucose 100 mg/dL (65-115); Osmolality Calculated 289 mOsm/kg (285-295); Sodium 139 mmol/L (136-145)
[2023-03-26] MEDS: acetaminophen 500 mg Tablet 1000 MG PO (06:09)
[2023-03-26] MEDS: pantoprazole DR 40 mg Tablet PO (06:09)
[2023-03-26] MEDS: ceFAZolin 3,000 MG in sodium chloride 0.9% (100 ml) 100 ML 200 MG IV (06:10)
[2023-03-26] MEDS: calcium carb-vit d 600mg/400unit 1 Tablet 1 EACH PO (08:01)
[2023-03-26] MEDS: morphine ER (12 HR) 30 mg tablet PO (08:01)
[2023-03-26] MEDS: gabapentin 300 mg Capsule 600 MG PO (08:01)
[2023-03-26] MEDS: lisinopril 20 mg Tablet PO (08:01)
[2023-03-26] MEDS: morphine IR 15 mg Tablet PO (08:01)
[2023-03-26] MEDS: FUROsemide 20 mg Tablet PO (08:01)
[2023-03-26] MEDS: multivitamin therapeutic Tablet 1 TAB PO (08:02)
[2023-03-26] MEDS: chlorhexidine gluconate 0.12% Btl 473 mL 30 ML MUCOUS MEM (08:02)
[2023-03-26] MEDS: enoxaparin 30 mg/0.3 mL Syringe SUBCUT (08:02)
[2023-03-26] MEDS: metoprolol succinate ER (24 HR) 25 mg Tablet PO (08:02)
--- NOTE | 2023-03-26 08:32 | P.DS_ITS ---
Discharge Providers Date of Admission: 03/23/23 15:24 Date of Discharge: March 26, 2023 Attending Provider at Admission: Dylan Zhang DO Attending Provider at Discharge: Dylan Zhang DO Consults: Hospitalist?internal medicine Dr. Michelle Primary Care Provider: Laureano Abraham MD Diagnoses at Discharge Discharge Diagnosis (1) Smoker: Status: Acute (2) Injury of left quadriceps femoris muscle: Status: Acute (3) Injury of meniscus of left knee: Status: Acute (4) Aortic root aneurysm: Status: Acute (5) Chondromalacia of both patellae: Status: Acute (6) Nicotine addiction: Status: Acute (7) Heart failure with preserved ejection fraction: Status: Acute (8) Nocturnal hypoxia: Status: Acute (9) Emphysema lung: Status: Acute (10) Restrictive lung disease: Status: Acute (11) Obstructive sleep apnea: Status: Acute Reason for Visit Reason for Visit: S76.102A Brief History: Patient was status post a left quadricep tendon repair and subsequent had multiple falls causing a retear to his left quadricep tendon. Ultrasound confirmed this and patient was taken back for left quadricep tendon repair revision and Ex-Fix placement Hospital Course Hospital Course Patient was brought into the hospital through the preoperative area. He was cleared for surgery and taken back to the operative suite for left quadricep te ndon repair, hematoma evacuation and left knee spanning external fixator placement. He tolerated this procedure without complications he received appropriate perioperative antibiotics. Was taken to PACU in stable condition and recovering well. He was admitted to the floor postoperatively with plan for social work consultation as patient will likely need long-term facility placement given this revision surgery and Ex-Fix limited Mobility and nonweightbearing restrictions to left lower extremity. Patient was admitted postoperatively to the floor received appropriate postoperative antibiotics, TXA, pain control, DVT prophylaxis, PT/OT. Internal medicine was consulted for medical management and appreciated their recommendations refer to their daily notes for treatment details. It is determined on postoperative day 3 patient was stable for discharge from orthopedic and internal medicine standpoint. Will be discharged to [place] [facility] facility. Appropriate discharge instruction as well as pain medication DVT prophylaxis and empiric postoperative antibiotics for infection prophylaxis will be given given the revision surgery. Patient follow-up in the orthopedic office in 2 weeks. Dressings were changed as needed throughout the hospitalization. Physical Exam Narrative: Patient seen and examined, dressings clean dry and intact Ex-Fix on in place mild bloody drainage noted at pin sites and on dressing but dried and intact. Compartments are soft compressible. No saturation on mir dressing, patient is able to wiggle toes plantarflex and dorsiflex ankle toes warm well perfused sensations intact light touch distally distal pulses palpable. Discharge Data Studies Completed and Pending Completed Studies During Hospitalization Category Date Time Status XR femur LT min 2V* [id number] Routine Exams 03/23/23 Completed Pending at discharge Category Date Time Status ES surgery / GI images Routine Exams 03/23/23 08:51 Ordered Laboratory Results WBC 8.21 10^3/uL (3.29-11.43) 03/26/23 03:51 RBC 3.80 10^6/uL (3.85-5.65) L 03/26/23 03:51 Hgb 11.10 g/dL (11.27-16.99) L 03/26/23 03:51 Hct 36.1 % (37-53) L 03/26/23 03:51 MCV 95.0 fl (82-101) 03/26/23 03:51 MCH 29.2 pg (27-33) 03/26/23 03:51 MCHC 30.7 g/dL (30-55) 03/26/23 03:51 RDW 14.9 % (12.1-15.1) 03/26/23 03:51 Plt Count 251 10^3/cmm (157-399) D 03/26/23 03:51 MPV 9.8 fL (7.4-10.4) 03/26/23 03:51 Neut % (Auto) 82.0 % 03/26/23 03:51 Lymph % (Auto) 9.0 % 03/26/23 03:51 Craven % (Auto) 6.9 % 03/26/23 03:51 Eos % (Auto) 1.5 % 03/26/23 03:51 Baso % (Auto) 0.1 % 03/26/23 03:51 Neut # (Auto) 6.73 10^3/uL (1.8-7.7) 03/26/23 03:51 Lymph # (Auto) 0.7 10^3/uL (0.8-4.8) L 03/26/23 03:51 Craven # (Auto) 0.6 10^3/uL (0.2-0.9) 03/26/23 03:51 Eos # (Auto) 0.1 10^3/uL (0.0-0.8) 03/26/23 03:51 Baso # (Auto) 0.0 10^3/uL (0.0-0.1) 03/26/23 03:51 Nucleated RBC % (auto) 0 % 03/26/23 03:51 Nucleated RBCs # 0.0 /100WBC 03/26/23 03:51 Sodium 139 mmol/L (136-145) 03/26/23 03:51 Potassium 4.0 mmol/L (3.5-5.1) 03/26/23 03:51 Chloride 105 mmol/L (98-107) 03/26/23 03:51 Carbon Dioxide 26 mmol/L (22-29) 03/26/23 03:51 Anion Gap 12.0 (5-19) 03/26/23 03:51 BUN 14 mg/dL (8-23) 03/26/23 03:51 Creatinine 0.9 mg/dL (0.7-1.2) 03/26/23 03:51 GFR Calculation 83.4 mL/min (90-130) L 03/26/23 03:51 Glucose 100 mg/dL (65-115) 03/26/23 03:51 POC Glucose 129 mg/dL (70-110) H 03/24/23 06:36 Calculated Osmolality 289 mOsm/kg (285-295) 03/26/23 03:51 Calcium 8.8 mg/dL (8.5-10.5) 03/26/23 03:51 Magnesium 1.7 mg/dL (1.7-2.3) 03/24/23 04:20 Blood Type O Positive 03/23/23 11:38 Rho(D) Type Positive 03/23/23 11:38 Antibody Screen Negative 03/23/23 11:38 Procedures Performed Left quadricep tendon repair revision, left thigh hematoma evacuation, left knee spanning external fixator Vitals Last Vital Signs Temp 98.2 F 03/26/23 03:52 Pulse 70 03/26/23 07:48 Resp 18 03/26/23 08:01 BP 171/83 03/26/23 03:52 Pulse Ox 94 03/26/23 07:48 O2 Del Method Room Air 03/26/23 07:48 O2 Flow Rate 3 03/24/23 08:53 Discharge Plan Discharge Patient Disposition: Xfer SNF Condition: Stable Prescriptions: New oxycodone 5 mg tablet 5 mg PO Q6H PRN (Reason: pain postop) 7 Days Qty: 28 0RF cephalexin 500 mg capsule 500 mg PO BID 7 Days Qty: 14 0RF ondansetron 4 mg tablet,disintegrating 4 mg PO Q8H 3 Days Qty: 9 0RF methocarbamol 500 mg tablet 500 mg PO Q8H PRN (Reason: muscle spasm & pain) 14 Days Qty: 42 0RF calcium carbonate-vitamin D3 [Calcium 600 + D(3)] 600 mg-10 mcg (400 unit) tablet 1 tab PO DAILY 30 Days Qty: 30 0RF enoxaparin [Lovenox] 30 mg/0.3 mL syringe 30 mg SUBCUT DAILY 35 Days Qty: 10.5 0RF Continued lidocaine 5 % adhesive patch,medicated 1 patch TOPICAL DAILY Rx Instructions: leave on most painful area for up to 12 hrs mesalamine 500 mg capsule, extended release 3,600 mg PO ONCE metoprolol succinate 50 mg capsule,sprinkle,ER 24hr 25 mg PO BID ropinirole 2 mg tablet 2 mg PO DAILY lisinopril 40 mg tablet 20 mg PO DAILY omeprazole 40 mg capsule,delayed release(DR/EC) 40 mg PO DAILY gabapentin 600 mg tablet 1,800 mg PO BID levalbuterol tartrate [Xopenex HFA] 45 mcg/actuation HFA aerosol inhaler 2 inh inhalation Q6H PRN (Reason: shortness of breath or wheezing) furosemide [Lasix] 20 mg tablet 20 mg PO DAILY 30 Days Qty: 30 3RF diphenhydramine HCl [Allergy (diphenhydramine)] 25 mg capsule 25 mg PO DAILY PRN (Reason: Allergy Symptoms) magnesium hydroxide [Milk of Magnesia] 400 mg/5 mL suspension 5 ml PO DAILY PRN (Reason: Constipation) bisacodyl [Dulcolax (bisacodyl)] 10 mg suppository 10 mg VT DAILY PRN (Reason: Constipation) Stiolto Respimat 2.5-2.5 mcg/actuation mist 2 puff inhalation DAILY Qty: 4 6RF trazodone 100 mg tablet 100 mg PO DAILY Qty: 30 11RF morphine 15 mg tablet 15 mg PO BID PRN (Reason: Pain) 30 Days Qty: 60 0RF morphine 30 mg capsule, ER multiphase 24 hr 30 mg PO BID 30 Days Qty: 60 0RF Discharge Orders: Discharge Order (Routine); Ordered 03/26/23 Ordered By: Dylan Zhang Referrals: Dylan Zhang, [Physician] - ([address] Zhang) Discharge Diet: Advance as tolerated Discharge Activity: Increase activity as tolerated, Limit activity as instructed, Wheelchair as instructed and As per PT/OT instructions Activity Restrictions/Additional Instructions: orthopedic discharge instructions: Patient should maintain Nonweightbearing to the left lower extremity Patient with work with PT/OT for strengthening and mobility as well as transfers to bedside and chair for sitting up. Would recommend against attempting ambulation as patient has bad ankles on the right side and would likely have high risks of fall Jaron bandage and pin sites around the Ex-Fix dressings can be removed after 5 da ys. Pin site should be cleaned daily around the Ex-Fix pins with half hydrogen peroxide and half normal saline with a cotton tip applicator they should then be redressed with 4 x 4's, Kerlix and an Jaron wrap applied back around the Ex-Fix Mir dressing over the anterior incision should be left on and in place and not changed for 7 days unless it becomes saturated then a new mir dressing should b e reapplied. After day 7 the mir dressing should be in a sterile dry island dressing/Silverlon dressing should be applied to keep the incision covered Take Lovenox as prescribed for blood thinner (for blood clot prevention) Take pain medication as prescribed Take muscle relaxer as needed Take antinausea medication as needed Supplement with Citracal vitamin D for bone health and healing Take antibiotic as prescribed for postoperative surgical infection prophylaxis Patient to follow-up with Dr. Zhang in the office in 2 weeks For free to contact the office for any questions or concerns pertaining to patient's care or dressings Discharge Attestations Time Spent in Discharge Care*: greater than 30 min Quality Metrics Clinical Quality Measures [ No reported AMI, CVA or VTE this stay] Coding Level of Care Code Acute Code for Chg Fwd Diagnoses Smoker F17.200 Injury of left quadriceps femoris muscle S76.102A Injury of meniscus of left knee S83.8X2A Aortic root aneurysm I71.21 Chondromalacia of both patellae M22.41; M22.42 Nicotine addiction F17.200 Heart failure with preserved ejection fraction I50.30 Nocturnal hypoxia G47.34 Emphysema lung J43.9 Restrictive lung disease J98.4 Obstructive sleep apnea G47.33 Time Spent (min) 35
[2023-03-26 11:33] LABS: SARS Covid-2 Antigen negative (Negative)
--- NOTE | 2023-03-26 12:44 | PC.SOCIAL ---
IMM Update pg 2 of IMM updated and reviewed w/ patient. Copy provided and copy dated, initialed and placed in chart.
--- NOTE | 2023-03-26 13:08 | PC.NURSE ---
Nurse called report to PARUL Florentino, at [facility] and updated on patients current condition and needs. All questions answered and addressed.
== END 2023-03-26 15:27 | disposition skilled nursing facility (03) | DRG 488 ==
LOC: MEDSURG 15:24
PROVIDERS: Internal Medicine; Admitting Provider Student in an Organized Health Care Education/Training Program; PCP Family Medicine; Visit Provider Student in an Organized Health Care Education/Training Program
PROC: 0QH Lower Bones, Insertion (ICD-10-PCS; principal; 2023-03-23 12:00)
PROC: 0QH Lower Bones, Insertion (ICD-10-PCS; 2023-03-23 12:00)
DX: S76.122A Laceration of left quadriceps muscle, fascia and tendon, initial encounter (principal); K50.90 Crohn's disease, unspecified, without complications; W19.XXXA Unspecified fall, initial encounter; W18.30XA Fall on same level, unspecified, initial encounter; Z11.52 Encounter for screening for COVID-19; Z79.891 Long term (current) use of opiate analgesic; F17.210 Nicotine dependence, cigarettes, uncomplicated; J43.9 Emphysema, unspecified; G47.33 Obstructive sleep apnea (adult) (pediatric); G89.29 Other chronic pain; M54.9 Dorsalgia, unspecified; K21.9 Gastro-esophageal reflux disease without esophagitis; I10 Essential (primary) hypertension; E78.5 Hyperlipidemia, unspecified; Z79.899 Other long term (current) drug therapy
CPT/HCPCS: 36415; 36416; 73552; 76000; 80048; 82962; 83735; 85025; 86850; 86900; 87426; 96372; 97110; 97161; 97165; 97530; 99024; 99214; C1713; J0131; J0690; J1100; J1170; J1650; J1815; J1885; J2371; J2405; J2704; J3010; J3370; J3490; J7030; J7120

== ENCOUNTER → 2023-04-10 14:23 | Outpatient (BNVA) | payer MEDICARE, OTHER, SELFPAY | PROVIDERS: PCP Family Medicine; Visit Provider Student in an Organized Health Care Education/Training Program | DX: S76.102D Unspecified injury of left quadriceps muscle, fascia and tendon, subsequent encounter (principal); X58.XXXD Exposure to other specified factors, subsequent encounter | CPT/HCPCS: 99024 ==

== ENCOUNTER → 2023-05-01 14:55 | Outpatient (BNVA) | payer MEDICARE, OTHER, SELFPAY | PROVIDERS: PCP Family Medicine; Visit Provider Student in an Organized Health Care Education/Training Program | DX: S76.102A Unspecified injury of left quadriceps muscle, fascia and tendon, initial encounter (principal); Z96.7 Presence of other bone and tendon implants; X58.XXXA Exposure to other specified factors, initial encounter | CPT/HCPCS: 99214 ==

== ENCOUNTER 2023-05-03 06:11 | Day surgery (SDC) | payer MEDICARE, OTHER, SELFPAY ==
[2023-05-03] VITALS (13 sets, daily range): BP systolic 104–141; BP diastolic 62–99; PULSE 67–76; RESP 10–22; TEMP 36.1–36.6; O2SAT 25–96
--- NOTE | 2023-05-03 06:57 | W.PM.OPSUD ---
Surgery/Procedure H&P Update DATE OF PROCEDURE: May 03, 2023 DATE H&P PERFORMED: 05/01/23 H&P UPDATE INFORMATION: I have reviewed H&P completed within last 30 days, I have examined patient prior to procedure and No changes to prior documentation PREOP DIAGNOSIS: Left knee spanning exfix, s/p Quad tendon repair revision PRIMARY INDICATION FOR PROCEDURE: Left knee spanning exfix, s/p Quad tendon repair revision PLANNED PROCEDURE: Operation Date: 05/03/23 08:00 Proposed Procedures p Hardware Removal External Fixator Lower(Left) - Dylan Zhang DO
[2023-05-03] MEDS: ketorolac 30 mg/mL INJ IVP (07:07)
[2023-05-03] MEDS: acetaminophen 1,000 MG/100 ML PIGGYBACK 400 MG IV (07:07)
[2023-05-03] MEDS: scopolamine 1.5 Patch 1 PATCH TRANSDERMA (07:07)
[2023-05-03] MEDS: sodium chloride 0.9% 1,000 ML 30 ML IV (07:08)
[2023-05-03 07:34] LABS: Anion Gap 16.7 (5-19); Blood Urea Nitrogen 18 mg/dL (8-23); Calcium 9.8 mg/dL (8.5-10.5); Carbon Dioxide 27 mmol/L (22-29); Chloride 98 mmol/L (98-107); Glomerular Filtration Rate 66.2 mL/min (90-130); Glucose 98 mg/dL (65-115); Osmolality Calculated 286 mOsm/kg (285-295); Potassium 4.7 mmol/L (3.5-5.1); Sodium 137 mmol/L (136-145)
[2023-05-03] MEDS: fentaNYL 50 mcg/mL INJ 2mL IVP ×2 (07:52→09:00)
--- NOTE | 2023-05-03 07:56 | ANES.PREANE2 ---
Pre-Anesthetic Assessment Height/Weight: Height 1.85 m Weight 125.645 kg Temp Pulse Resp BP Pulse Ox O2 Del Method 97.3 F L 72 18 117/75 92 Room Air 05/03/23 06:35 05/03/23 06:35 05/03/23 06:35 05/03/23 06:35 05/03/23 06:35 05/03/23 06:57 Preop Diagnosis: Left knee spanning exfix, s/p Quad tendon repair revision Operation Date: 05/03/23 08:00 Proposed Procedures p Hardware Removal External Fixator Lower(Left) - Dylan Leatha, DO Familial anesthetic complications: None Was Beta Christian taken within 24 hours: N/A (Last took metoprolol yesterday morning) Was Clonidine taken within 24 hours: N/A Last intake: Intake Last Liquid Date 05/02/23 Last Liquid Time 14:00 Last Solid Date 05/02/23 Last Solid Time 12:00 Social Tobacco and No alcohol Exam alert, oriented x 3, clear to auscultation bilaterally and regular rate & rhythm Airway Submandibular: within normal limits Cervical ROM: within normal limits Mallampati: Class III Dentition: false History/ROS No significant history except as noted and No significant complaints Pulmonary Chronic Obstructive Pulmonary Disease CV/HEM Coronary Artery Disease, Congestive Heart Failure and Hypertension None reported Hepatic None reported GI Gastroesophageal Reflux Disease Metabolic Morbid Obesity [facility] None reported Neuropsych None reported Anesthetic Plan ASA status: 3 Anesthesia: Anesthesia Evaluation and General Risk of > 500 ml blood loss (7ml/kg in children): No Medications/Allergies Home Medications Medication Instructions Recorded Confirmed Last Taken Type lidocaine 5 % topical patch 1 patch topical DAILY 03/29/20 05/02/23 05/01/23 History lisinopril 40 mg tablet 20 mg PO DAILY 03/29/20 05/02/23 05/02/23 History metoprolol succinate 50 mg capsule 25 mg PO BID 03/29/20 05/02/23 05/02/23 History sprinkle, ext. release 24 hr omeprazole 40 mg capsule,delayed 40 mg PO DAILY 03/29/20 05/02/23 05/02/23 History release ropinirole 2 mg tablet 2 mg PO DAILY 03/29/20 05/02/23 05/02/23 History furosemide 20 mg tablet (Lasix) 20 mg PO DAILY 30 days #30 tabs 06/28/20 05/02/23 04/03/23 Rx levalbuterol tartrate 45 2 inh inhalation Q6H PRN shortness 06/28/20 05/02/23 05/02/23 History mcg/actuation aerosol inhaler of breath or wheezing (Xopenex HFA) diphenhydramine HCl 25 mg capsule 25 mg PO DAILY PRN Allergy Symptoms 09/27/20 05/02/23 03/22/23 History (Allergy (diphenhydramine)) gabapentin 600 mg tablet 1,800 mg PO BID 12/19/22 05/02/23 05/02/23 History trazodone 100 mg tablet 100 mg PO DAILY #30 tabs 01/22/23 05/02/23 05/02/23 Rx magnesium hydroxide 400 mg/5 mL 5 ml PO DAILY PRN Constipation 03/13/23 05/02/23 05/01/23 History oral suspension (Milk of Magnesia) morphine 15 mg immediate release 15 mg PO BID PRN Pain 30 days #60 03/13/23 05/02/23 04/29/23 Rx tablet tabs morphine 30 mg capsule,extended 30 mg PO BID 30 days #60 caps 03/13/23 05/02/23 05/02/23 Rx release 24 hr multiphase mesalamine 500 mg capsule,extended 2,400 mg (4.8 x 500 mg) PO DAILY 03/26/23 05/02/23 05/02/23 Rx release #30 caps oxycodone 5 mg capsule 5 mg PO BID PRN Pain (Scale Score 04/10/23 05/02/23 04/27/23 History 7-10) Allergies Allergy/AdvReac Type Severity Reaction Status Date / Time varenicline [From Chantix] Allergy ALGY-Bliste Verified 05/03/23 06:42 r Current Medications Generic Name Dose Route Start Last Admin Trade Name Freq PRN Reason Stop Dose Admin Sodium Chloride 1,000 mls @ 30 mls/hr 05/03/23 06:45 05/03/23 07:08 Sodium Chloride 0.9% IV 05/04/23 06:44 30 mls/hr .Q24H ARNAUD Administration PFSH Anesthesia Medical History Chondromalacia of both patellae Crohn's disease HTN (hypertension) GERD (gastroesophageal reflux disease) Histoplasmosis Nicotine dependence Lung nodule Hypoxia Hyperlipidemia Chronic back pain COPD (chronic obstructive pulmonary disease) Cardiomegaly Efe syndrome Surgical History H/O shoulder surgery H/O hernia repair History of ear surgery Social History Smoking and tobacco/nicotine status: current every day tobacco/nicotine user cigarettes Packs smoked per day: 1 Years cigarettes smoked: 45 Quit status (tobacco/nicotine): considering quitting Second hand smoke exposure: Yes Alcohol intake: never Substance/Drug Use: never Lives independently: Yes Household members: spouse Marital status: service: Yes Current occupational status: retired Pets and animals: Yes Do you think of yourself as: Straight/Heterosexual Current gender identity: Male Data Anesthesia 05/03/23 07:10 BMP 05/03/23 07:10 Sodium 137 Potassium 4.7 Chloride 98 Carbon Dioxide 27 BUN 18 Creatinine 1.1 Glucose 98 Calcium 9.8 Cardiac Studies: Sestamibi Stress Test (Cardiology) 08/02/20
[2023-05-03] MEDS: ceFAZolin 1,000 mg SDV 1000 MG IVP (07:57)
[2023-05-03] MEDS: ceFAZolin 2,000 MG in sodium chloride 0.9% (plus) 50 ML 100 MG IV (07:57)
--- NOTE | 2023-05-03 08:51 | P.BOP_ITS ---
Date of Procedure: [05/03/2023] Surgeon: Dylan Zhang DO Sealing [employer] Canceling Machine Operator(s): TAWANNA Roberts Procedure(s) performed: Left knee spanning external fixator removal Findings of the procedure(s): Left knee spanning external fixator removal procedure went as planned without complications Estimated blood loss: 10 mL Specimen(s) removed: None Post-operative diagnosis: Status post left quadricep tendon revision repair and Ex-Fix placement
--- NOTE | 2023-05-03 08:56 | XR_ITS ---
WS: [id number] Left femur and thigh, AP and lateral views, 05/03/2023 Clinical Data: exfix removal Comparison: None. Findings: No fractures or dislocations are seen. The soft tissues are normal. The visualized knee shows no abno rmalities. The external support devices obscure some detail. There are vascular calcifications. The visualized h ip and knee show no acute changes. There is osteoarthritic change of the left knee. Impression: Negative left femur and thigh.
--- NOTE | 2023-05-03 08:56 | XR_ITS ---
WS: [id number] Left leg including the tibia and fibula, AP and lateral views, 05/03/2023 Clinical Data: exfix removal Comparison: Left knee 03/08/2023 Findings: No fractures or dislocations are seen. The tibia and fibula are intact. The soft tissues are normal. External support devices obscures some detail about the knee. There is irregularity of the left guerin la. Impression: Negative for fracture.
--- NOTE | 2023-05-03 08:59 | PM.OP ---
Operative Report Date of procedure: May 03, 2023 Pre-op diagnosis: Left knee present spanning external fixator status post left knee quadricep tendon repair revision Post-op diagnosis: Same Procedure done: Left knee spanning Ex-Fix removal Surgeon: Dylan Zhang DO Anesthesia: General Estimated blood loss: 10 mL None IV fluids: 800 mL Complications: None Findings: See operative report narrative Condition: stable Disposition: same day Brief History: Karel is a pleasant 72-year-old gentleman who is here today to proceed with removal of spanning external fixator. He is right at 6 weeks out from a quadricep tendon repair revision on the left side. He had initial repair but unfortunately had multiple falls in the postoperative course and quadricep tendon repair had failed he underwent revision of this repair and in order to protect from any falls a spanning external fixator was placed. He has now been 6 weeks out and time is to have this Ex-Fix removed to begin working on range of motion as this is given appropriate time for this revision repair to heal. He understands these and after procedure risk benefits complications alternatives of surgery and elects to proceed with surgical intervention all questions answered at this time. Procedure: Patient was seen evaluate in the preoperative holding area. Consent was reviewed and signed with patient correct extremity marked patient was then seen evaluated by anesthesia and was cleared for surgery was taken back to the operative suite transported on the OR table all bony promises well-padded patient appropriate secured to the bed. Patient then underwent anesthesia per the anesthesia department was appropriate anesthetized patient was prepped and draped in standard orthopedic fashion to the left lower extremity. Final timeout performed. Patient received appropriate preoperative antibiotics. Patient had Betadine prep performed of all parts of the Ex-Fix as well as the left lower extremity I then subsequently utilized a T-handle han to loosen the Ex-Fix contraption and disengage this from the pins both proximally and distally. This was performed atraumatically. Next utilizing a T-handle han I then subsequently disengage in [place] all 4 of the Ex-Fix pins and then loaded these up on power and remove these atraumatically. Patient had normal general bleeding from the pin sites I then utilized a curette to curette the bone from the pin sites both on the femur and tibial pin sites there is no evidence of purulence noted at the pin sites these were dried and eschared around well. This point in time thorough irrigation was performed Xeroform 4 x 4's ABDs Curlex soft roll and an Jaron wrap was applied as well as a [place] hinged knee brace was then applied locked in full extension. Patient was then awakened from anesthesia and taken to PACU in stable condition. Patient tolerated procedure without any issues. Disposition: Patient taken back in stable condition recovering well. This point in time will be given appropriate discharge instructions as well as pain medication postoperatively. We will begin his weightbearing process as well as working with therapy we will get him returning back to his rehab facility and they are given appropriate discharge instructions all questions answered. Will see him back in 2 weeks.
[2023-05-03] MEDS: HYDROcodone-acetaminophen 5-325 mg Tablet 1 TAB PO (09:35)
[2023-05-03] MEDS: morphine ER (12 HR) 30 mg tablet PO (09:40)
--- NOTE | 2023-05-03 10:05 | ANE.PACU2 ---
Inpatient post-anesthesia follow up: Airway intact: Yes Vital signs: Temperature 97.2 F Pulse Rate 69 Respiratory Rate 16 Blood Pressure 132/67 Pulse Oximetry 95 Oxygen Delivery Me thod Room Air Oxygen Flow Rate Fraction of Inspir ed Oxygen Hydration adequate: Yes Nausea and vomiting: No Pain level: 1 Mental status: Baseline
== END 2023-05-03 10:05 | disposition home or self-care (01) ==
PROVIDERS: PCP Family Medicine; Visit Provider Student in an Organized Health Care Education/Training Program
PROC: (CPT 20694; principal; 2023-05-03 08:00)
DX: T84.89XA Other specified complication of internal orthopedic prosthetic devices, implants and grafts, initial encounter (principal); J44.9 Chronic obstructive pulmonary disease, unspecified; I25.10 Atherosclerotic heart disease of native coronary artery without angina pectoris; I11.0 Hypertensive heart disease with heart failure; I50.9 Heart failure, unspecified; E66.01 Morbid (severe) obesity due to excess calories; Z68.36 Body mass index [BMI] 36.0-36.9, adult; E78.5 Hyperlipidemia, unspecified; F17.210 Nicotine dependence, cigarettes, uncomplicated
CPT/HCPCS: 20694; 73552; 73590; 80048; A4216; J0131; J0690; J1100; J1885; J2371; J2405; J2704; J3010; J7030

== ENCOUNTER → 2023-05-22 14:08 | Outpatient (BNVA) | payer MEDICARE, OTHER, SELFPAY | PROVIDERS: PCP Family Medicine; Visit Provider Student in an Organized Health Care Education/Training Program | DX: Z96.7 Presence of other bone and tendon implants; M21.372 Foot drop, left foot; S76.102D Unspecified injury of left quadriceps muscle, fascia and tendon, subsequent encounter; X58.XXXD Exposure to other specified factors, subsequent encounter | CPT/HCPCS: 99213 ==

== ENCOUNTER → 2023-07-12 14:11 | Outpatient (BNVA) | payer MEDICARE, OTHER, SELFPAY | PROVIDERS: PCP Family Medicine; Visit Provider Internal Medicine Pulmonary Disease | DX: J98.4 Other disorders of lung (principal); J43.9 Emphysema, unspecified; F17.210 Nicotine dependence, cigarettes, uncomplicated; R91.1 Solitary pulmonary nodule; G47.33 Obstructive sleep apnea (adult) (pediatric); G47.34 Idiopathic sleep related nonobstructive alveolar hypoventilation; I50.33 Acute on chronic diastolic (congestive) heart failure | CPT/HCPCS: 99214 ==

== ENCOUNTER → 2023-07-19 10:15 | Outpatient (BNVA) | payer MEDICARE, OTHER, SELFPAY | PROVIDERS: PCP Family Medicine; Visit Provider Student in an Organized Health Care Education/Training Program | DX: Z96.7 Presence of other bone and tendon implants (principal); M21.372 Foot drop, left foot; S76.102A Unspecified injury of left quadriceps muscle, fascia and tendon, initial encounter; X58.XXXA Exposure to other specified factors, initial encounter; Z46.89 Encounter for fitting and adjustment of other specified devices; S76.102D Unspecified injury of left quadriceps muscle, fascia and tendon, subsequent encounter; X58.XXXD Exposure to other specified factors, subsequent encounter | CPT/HCPCS: 73562; 97760; 99213; L1812 ==

== ENCOUNTER 2023-07-19 11:24 | Outpatient (CLI) | payer MEDICARE, OTHER, SELFPAY | END 2023-07-19 11:25 | disposition home or self-care (01) | LOC: SPT 11:25 | PROVIDERS: PCP Family Medicine; Visit Provider Student in an Organized Health Care Education/Training Program | DX: Z46.89 Encounter for fitting and adjustment of other specified devices (principal); S76.102D Unspecified injury of left quadriceps muscle, fascia and tendon, subsequent encounter; X58.XXXD Exposure to other specified factors, subsequent encounter | CPT/HCPCS: 97760; 99213; L1812 ==

== ENCOUNTER 2023-07-23 10:27 | Outpatient (CLI) | payer MEDICARE, OTHER, SELFPAY ==
--- NOTE | 2023-07-23 11:00 | CT_ITS ---
WS: [id number] LDCT LUNG CANCER SCREENING TECHNIQUE: Noncontrast CT of the chest with coronal and sagittal reformatted images. CLINICAL INFORMATION: Cancer Screening COMPARISON: None. DLP: 189.29 mGy.cm DIvol: Mean CTDIvol: 4.50 (mGy) All CT scans at [facility] use at least one of these dose optimization techniques: automat ed exposure control; mA and/or kV adjustment per patient size (includes targeted exams where dose is matched to clinical indication); or iterative reconstruction. FINDINGS: Mild chronic emphysematous changes. No mediastinal or hilar lymphadenopathy. No axillary ly mphadenopathy. Calcified granuloma LEFT lung border. Tiny noncalcified nodule LEFT lower lobe. Tiny n oncalcified nodule LEFT upper lobe. No other suspicious pulmonary parenchymal abnormalities. Ascending thoracic aortic aneurysm measuring 4.0 cm is unchanged. Cardiomegaly. Vascular calcificatio n including coronary. Adrenal glands are normal. Small esophageal hiatal hernia. Mild thoracic kyphosis. Mild thoracic curv e. Hypertrophic changes thoracic spine. IMPRESSION: CT/CT lung screening [id number] LUNG-RADS: 2-Benign Appearance or Behavior FOLLOW UP: 12 Month: Continue annual screening with LDCT
== END 2023-07-23 10:28 | disposition home or self-care (01) ==
LOC: RAD 10:28
PROVIDERS: Visit Provider Internal Medicine Pulmonary Disease
DX: Z12.2 Encounter for screening for malignant neoplasm of respiratory organs (principal); F17.210 Nicotine dependence, cigarettes, uncomplicated; J43.9 Emphysema, unspecified
CPT/HCPCS: 71271

== ENCOUNTER 2023-07-27 09:12 | Outpatient (RCR) | payer MEDICARE, OTHER, SELFPAY | END 2023-08-02 23:59 | disposition home or self-care (01) | LOC: SPT 09:12 | PROVIDERS: Visit Provider Student in an Organized Health Care Education/Training Program | DX: Z47.89 Encounter for other orthopedic aftercare (principal) | CPT/HCPCS: 97110; 97161 ==

== ENCOUNTER 2023-08-03 06:00 | Outpatient (RCR) | payer MEDICARE, OTHER, SELFPAY | END 2023-09-02 23:59 | disposition home or self-care (01) | LOC: SPT 06:00 | PROVIDERS: Visit Provider Student in an Organized Health Care Education/Training Program | DX: Z98.890 Other specified postprocedural states (principal) | CPT/HCPCS: 97110 ==

== ENCOUNTER → 2023-08-28 13:16 | Outpatient (BNVA) | payer MEDICARE, OTHER, SELFPAY | PROVIDERS: Visit Provider Internal Medicine Pulmonary Disease | DX: J98.4 Other disorders of lung (principal); J43.9 Emphysema, unspecified; F17.210 Nicotine dependence, cigarettes, uncomplicated; R91.1 Solitary pulmonary nodule; G47.33 Obstructive sleep apnea (adult) (pediatric); G47.34 Idiopathic sleep related nonobstructive alveolar hypoventilation; I50.33 Acute on chronic diastolic (congestive) heart failure; J32.9 Chronic sinusitis, unspecified; E66.9 Obesity, unspecified; Z68.35 Body mass index [BMI] 35.0-35.9, adult | CPT/HCPCS: 99214 ==

== ENCOUNTER 2023-09-03 06:00 | Outpatient (RCR) | payer MEDICARE, OTHER, SELFPAY | END 2023-10-02 23:59 | disposition home or self-care (01) | LOC: SPT 06:00 | PROVIDERS: Visit Provider Student in an Organized Health Care Education/Training Program | DX: Z98.890 Other specified postprocedural states (principal) | CPT/HCPCS: 97110 ==

== ENCOUNTER 2023-10-03 06:00 | Outpatient (RCR) | payer MEDICARE, OTHER, SELFPAY | END 2023-10-25 23:59 | disposition home or self-care (01) | LOC: SPT 06:00 | PROVIDERS: Visit Provider Student in an Organized Health Care Education/Training Program | DX: R26.89 Other abnormalities of gait and mobility (principal); M25.662 Stiffness of left knee, not elsewhere classified; M62.81 Muscle weakness (generalized) | CPT/HCPCS: 97110 ==

== ENCOUNTER → 2023-10-16 09:54 | Outpatient (BNVA) | payer MEDICARE, OTHER, SELFPAY | PROVIDERS: Visit Provider Student in an Organized Health Care Education/Training Program | DX: Z98.890 Other specified postprocedural states | CPT/HCPCS: 73560; 73565; 99213 ==

== ENCOUNTER → 2024-02-20 13:08 | Outpatient (BNVA) | payer OTHER, SELFPAY | PROVIDERS: PCP Family Medicine; Visit Provider Internal Medicine Critical Care Medicine | DX: J42 Unspecified chronic bronchitis (principal); G47.33 Obstructive sleep apnea (adult) (pediatric); R91.1 Solitary pulmonary nodule; F17.200 Nicotine dependence, unspecified, uncomplicated; F17.210 Nicotine dependence, cigarettes, uncomplicated; Z71.6 Tobacco abuse counseling; Z71.89 Other specified counseling | CPT/HCPCS: 99213 ==

== ENCOUNTER 2024-04-17 11:11 | Outpatient (CLI) | payer OTHER, SELFPAY | END 2024-04-17 11:12 | disposition home or self-care (01) | LOC: SPT 11:12 | PROVIDERS: PCP Family Medicine; Visit Provider Physician Assistant | DX: Z46.89 Encounter for fitting and adjustment of other specified devices (principal); M17.12 Unilateral primary osteoarthritis, left knee | CPT/HCPCS: 97760; 99213; L1851 ==

== ENCOUNTER → 2024-06-12 17:19 | Outpatient (BNVA) | payer MEDICARE, OTHER, SELFPAY | PROVIDERS: PCP Family Medicine; Visit Provider Family Medicine | DX: R11.10 Vomiting, unspecified (principal) | CPT/HCPCS: 87400 ==

== ENCOUNTER → 2024-06-30 16:29 | Outpatient (BNVA) | payer MEDICARE, OTHER, SELFPAY | PROVIDERS: PCP Family Medicine; Visit Provider Family Medicine | DX: J06.9 Acute upper respiratory infection, unspecified (principal) | CPT/HCPCS: 87400; 87426 ==

== ENCOUNTER → 2024-12-10 10:33 | Outpatient (BNVA) | payer MEDICARE, OTHER, SELFPAY | PROVIDERS: PCP Family Medicine; Visit Provider Family Medicine | DX: C44.320 Squamous cell carcinoma of skin of unspecified parts of face (principal); G62.9 Polyneuropathy, unspecified; I50.33 Acute on chronic diastolic (congestive) heart failure; E11.9 Type 2 diabetes mellitus without complications | CPT/HCPCS: 80053; 80061; 82607; 83036; 84443; 85025; 86140 ==

== ENCOUNTER → 2025-01-08 10:46 | Outpatient (BNVA) | payer MEDICARE, OTHER, SELFPAY | PROVIDERS: PCP Family Medicine; Visit Provider Dermatology | DX: L82.1 Other seborrheic keratosis (principal); Z85.828 Personal history of other malignant neoplasm of skin; D48.5 Neoplasm of uncertain behavior of skin; L57.0 Actinic keratosis | CPT/HCPCS: 11102; 17000; 69100; 99202 ==

== ENCOUNTER → 2025-01-26 12:42 | Outpatient (BNVA) | payer MEDICARE, OTHER, SELFPAY | PROVIDERS: PCP Family Medicine; Visit Provider Dermatology | DX: C44.612 Basal cell carcinoma of skin of right upper limb, including shoulder (principal) | CPT/HCPCS: 12032; 17313 ==

== ENCOUNTER → 2025-02-09 10:12 | Outpatient (BNVA) | payer MEDICARE, OTHER, SELFPAY | PROVIDERS: PCP Family Medicine; Visit Provider Dermatology | DX: C44.612 Basal cell carcinoma of skin of right upper limb, including shoulder (principal); L72.0 Epidermal cyst; Z08 Encounter for follow-up examination after completed treatment for malignant neoplasm; Z85.828 Personal history of other malignant neoplasm of skin; L57.0 Actinic keratosis | CPT/HCPCS: 17000; 99213 ==

== ENCOUNTER → 2025-04-08 09:30 | Outpatient (BNVA) | payer MEDICARE, OTHER, SELFPAY | PROVIDERS: PCP Family Medicine; Visit Provider Family Medicine | DX: R10.9 Unspecified abdominal pain (principal) | CPT/HCPCS: 80053; 85025; 86140 ==

== ENCOUNTER → 2025-04-10 08:56 | Outpatient (BNVA) | payer MEDICARE, OTHER, SELFPAY | PROVIDERS: PCP Family Medicine; Visit Provider Dermatology | DX: L57.8 Other skin changes due to chronic exposure to nonionizing radiation (principal); L81.4 Other melanin hyperpigmentation; Z08 Encounter for follow-up examination after completed treatment for malignant neoplasm; Z85.828 Personal history of other malignant neoplasm of skin; D48.5 Neoplasm of uncertain behavior of skin; L57.0 Actinic keratosis | CPT/HCPCS: 11102; 17000; 99213 ==

== ENCOUNTER → 2025-05-13 09:29 | Outpatient (BNVA) | payer MEDICARE, OTHER, SELFPAY | PROVIDERS: PCP Family Medicine; Visit Provider Dermatology | DX: L72.0 Epidermal cyst (principal); L57.8 Other skin changes due to chronic exposure to nonionizing radiation; Z08 Encounter for follow-up examination after completed treatment for malignant neoplasm; Z85.828 Personal history of other malignant neoplasm of skin; L57.0 Actinic keratosis | CPT/HCPCS: 17000; 99213 ==